=== PATIENT | female | born 1940 | race Caucasian/White ===

== ENCOUNTER 2017-04-09 11:48 | Inpatient (IN) | payer MEDICARE, OTHER ==
[~2017-04-09] VITALS: Ht 160 cm; Wt 120.4 kg
[~2017-04-09 11:48] MED LIST: APIX5TAB3 PO; CARV-50 PO; GLYB5TAB7 PO; LANTUS SQ; OMEP40CA37 PO; SITA100T11 PO; TRAM50TA2 PO
[2017-04-09 12:30] LABS: BASOPHILS % (AUTO) 0.3 % (0-1); EOSINOPHILS # (AUTO) 0.2 X10'3 (0-0.9); HEMATOCRIT 43.4 % (35.0-45.0); HEMOGLOBIN 13.9 g/dl (12.0-16.0); LYMPHOCYTES # (AUTO) 0.7 X10'3 (1.1-4.8); LYMPHOCYTES % (AUTO) 4.8 % (21-51); MEAN CORPUSCULAR HEMOGLOBIN 26.2 PG (27.0-31.0); MEAN CORPUSCULAR VOLUME 81.9 FL (78-98); MEAN PLATELET VOLUME 8.5 FL (7.4-10.4); MONOCYTES # (AUTO) 0.9 X10'3 (0-0.9); MONOCYTES % (AUTO) 5.6 % (2-12); NEUTROPHILS # (AUTO) 13.8 X10'3 (1.8-7.7); NEUTROPHILS % (AUTO) 88.3 % (42-75); PLATELET COUNT 196 X10'3 (140-440); RED CELL DISTRIBUTION WIDTH 16.8 % (11.5-14.5); WHITE BLOOD COUNT 15.7 X10'3 (4.5-11.0)
[2017-04-09 12:41] LABS: INR 1.1 INR; PARTIAL THROMBOPLASTIN TIME 29 SECONDS (22-32); PROTHROMBIN TIME 11.6 SECONDS (9.0-12.0)
[2017-04-09 12:59] LABS: ALANINE AMINOTRANSFERASE 42 U/L (12-78); ALBUMIN 3.3 G/DL (3.4-5.0); ALBUMIN/GLOBULIN RATIO 0.8 (1.1-1.5); ALKALINE PHOSPHATASE 100 IU/L (46-116); ANION GAP 8 (8-16); ASPARTATE AMINO TRANSFERASE 43 U/L (10-37); BILIRUBIN,TOTAL 0.5 MG/DL (0.1-1.0); BLOOD UREA NITROGEN 39 MG/DL (7-18); BUN/CREATININE RATIO 29.1 (6.6-38.0); CALCIUM 8.7 MG/DL (8.5-10.1); CHLORIDE 104 MMOL/L (99-107); CREATININE 1.34 MG/DL (0.40-0.90); GLUCOSE 221 MG/DL (70-104); MAGNESIUM 2.3 MG/DL (1.5-2.4); SODIUM 139 MMOL/L (135-145); TOTAL CARBON DIOXIDE 27.4 MMOL/L (24-32); TOTAL PROTEIN 7.5 G/DL (6.4-8.2); eGFR 38 ML/MIN
[2017-04-09 13:00] LABS: POTASSIUM 6.2 MMOL/L (3.5-5.1)
[2017-04-09] MEDS ORDERED: sodium polystyrene sulfonate 15gm/60ml oral suspension PO ONE (13:10)
[2017-04-09] MEDS ORDERED: insulin regular, human 10 units/0.1 ml syringe IV ONE (13:10)
[2017-04-09] MEDS ORDERED: calcium chloride 100 MG/1 ML inj IV ONE (13:10)
[2017-04-09] MEDS ORDERED: dextrose 50%-water 50ml dispensing syringe IV ONE (13:10)
[2017-04-09] MEDS ORDERED: ipratropium/albuterol 3ml nebule NEB ONE (13:15)
[2017-04-09] MEDS ORDERED: azithromycin/NS 500mg/250ml 250 ML IV ONE (13:15)
[2017-04-09] MEDS ORDERED: cefTRIAXone 1g/NS 100ml IVPB 100 ML IV ONE (13:15)
[2017-04-09] MEDS ORDERED: furosemide 40mg/4ml inj IV ONE (13:25)
[2017-04-09] MEDS ORDERED: diltiazem 5mg/ml 5ml inj. IV ONE (13:25)
[2017-04-09 13:26] LABS: CLARITY,URINE Turbid (Clear); COLOR,URINE Dark Yellow (Yellow); GLUCOSE, URINE Negative (Neg); KETONES,URINE Trace mg/dl (Neg); LEUKOCYTE ESTERASE ,URINE Large (Neg); NITRITES, URINE Negative (Neg); OCCULT BLOOD,URINE Large (Neg); PROTEIN,URINE 100 mg/dl (Neg)
[2017-04-09 13:27] LABS: UA COLLECTION TYPE FOLEY CATH
[2017-04-09 13:33] LABS: WBC,URINE TNTC /HPF (0-4)
[2017-04-09 13:34] LABS: BACTERIA,URINE 2+ /HPF (Neg); MUCUS STRANDS NONE SEEN /LPF (Neg); SQUAMOUS EPITHELIAL CELL,UR FEW /LPF (FEW)
[2017-04-09] MEDS ORDERED: NORepinephrine 1 mg/ml inj IV ONE (15:00)
[2017-04-09] MEDS ORDERED: etomidate 2mg/ml inj. ONE (15:00)
[2017-04-09] MEDS ORDERED: rocuronium 10mg/ml inj IV ONE (15:00)
[2017-04-09] MEDS ORDERED: epiNEPHrine 0.1mg/ml 10ml syringe ONE (15:00)
[2017-04-09] MEDS ORDERED: normal saline 1000ml 1,000 ML IV SCH (16:13)
[2017-04-09] MEDS ORDERED: dextrose ORAL solution 15 GM/59 ML bottle PO PRN (16:15)
[2017-04-09] MEDS ORDERED: magnesium 4gm in 100ml NS 100 ML IV PRN (16:15)
[2017-04-09] MEDS ORDERED: glucagon, human recombinant 1mg kit SUBCUT PRN (16:15)
[2017-04-09] MEDS ORDERED: magnesium 2GM in 50ml NS 50 ML IV PRN (16:15)
[2017-04-09] MEDS ORDERED: magnesium Cl slow-release 64mg tablet PO PRN (16:15)
[2017-04-09] MEDS ORDERED: MESSAGE TO PHARMACY PO ONE (16:15)
[2017-04-09] MEDS ORDERED: morphine 2 MG/ML inj. syringe IV PRN ×2 (16:15)
[2017-04-09] MEDS ORDERED: potassium Cl 20 mEq SR tablet PO PRN ×2 (16:15)
[2017-04-09] MEDS: K and/or MAG REPLACEMENT MC SCH (16:15)
[2017-04-09] MEDS ORDERED: mag hydrox/Alum hydrox/simeth 30ml oral suspension PO PRN (16:15)
[2017-04-09] MEDS ORDERED: diltiazem-D5W 125mg/125ml 125 ML IV SCH (16:15)
[2017-04-09] MEDS ORDERED: potassium Cl 40MEQ/NS 500ml 500 ML IV PRN ×2 (16:15)
[2017-04-09] MEDS ORDERED: acetaminophen 325mg tablet PO PRN (16:15)
[2017-04-09] MEDS ORDERED: dextrose 50%-water 50ml dispensing syringe IV PRN ×2 (16:15)
[2017-04-09] MEDS ORDERED: ATEN-169 PO (16:17)
[2017-04-09] MEDS ORDERED: ACAR50TA3 (16:18)
[2017-04-09] MEDS ORDERED: CARI350T PO (16:19)
[2017-04-09] MEDS ORDERED: ipratropium/albuterol 3ml nebule NEB PRN (16:55)
[2017-04-09] MEDS ORDERED: FLEC100T PO (16:58)
[2017-04-09] MEDS ORDERED: TRAM50TA2 PO (16:58)
[2017-04-09] MEDS ORDERED: SITA100T15 PO (16:58)
[2017-04-09] MEDS: vancomycin/NS 1 GM ADD-VANTAGE 250 ML IV SCH ×2 (17:13→18:58)
[2017-04-09 19:40] VITALS: BP 133/50
[2017-04-09] MEDS ORDERED: furosemide 10 MG/1 ML 10ml inj IV SCH ×2 (20:00)
[2017-04-09] MEDS: carVEDilol 12.5mg tablet PO SCH (20:20)
[2017-04-09] MEDS: apixaban 5mg tablet PO SCH (20:21)
[2017-04-09] MEDS: insulin glargine (Lantus) pen - multi-dose SQ SCH (20:53)
[2017-04-09 21:01] LABS: HEMOGLOBIN A1C 7.9 % (4.5-6.2)
[2017-04-09 21:11] LABS: ABG HCO3 24.6 mmol/L (22.0-26.0); ABG OXYGEN SATURATION 96.2 % (95-98); ABG PCO2 (T) 74.1 mmHg (32.0-45.0); ABG PH (T) 7.139 (7.350-7.450); ABG PO2 (T) 97.1 mmHg (83-108); FCOHb 0.8 % (0.5-1.5); FLOW 5 L/min; FMetHb 0.3 % (0.3-1.12); FO2Hb 95.1 % (94-100); TOTAL HEMOGLOBIN 13.9 G/dl (12.0-16.0)
[2017-04-09 22:51] LABS: ABG BASE EXCESS -3.8 mmol/L (-2.0-3.0); ABG HCO3 24.4 mmol/L (22.0-26.0); ABG OXYGEN SATURATION 93.9 % (95-98); ABG PCO2 (T) 58.7 mmHg (32.0-45.0); ABG PH (T) 7.237 (7.350-7.450); ABG PO2 (T) 73.9 mmHg (83-108); FCOHb 0.7 % (0.5-1.5); FMetHb 0.2 % (0.3-1.12); FO2Hb 93.1 % (94-100); MINUTE VOLUME 20 L/min; RESPIRATORY RATE (OBSERVED) 26 b/min
[2017-04-10] VITALS (7 sets, daily range): BP systolic 96–131; BP diastolic 39–65
[2017-04-10 00:51] LABS: ALANINE AMINOTRANSFERASE 45 U/L (12-78); ALBUMIN 2.7 G/DL (3.4-5.0); ALBUMIN/GLOBULIN RATIO 0.7 (1.1-1.5); ALKALINE PHOSPHATASE 83 IU/L (46-116); ANION GAP 6 (8-16); ASPARTATE AMINO TRANSFERASE 37 U/L (10-37); BILIRUBIN,TOTAL 0.5 MG/DL (0.1-1.0); BLOOD UREA NITROGEN 41 MG/DL (7-18); BUN/CREATININE RATIO 29.5 (6.6-38.0); CALCIUM 8.6 MG/DL (8.5-10.1); CHLORIDE 107 MMOL/L (99-107); CREATININE 1.39 MG/DL (0.40-0.90); GLUCOSE 191 MG/DL (70-104); MAGNESIUM 2.1 MG/DL (1.5-2.4); PHOSPHORUS 5.9 MG/DL (2.3-4.5); POTASSIUM 5.5 MMOL/L (3.5-5.1); SODIUM 144 MMOL/L (135-145); TOTAL CARBON DIOXIDE 30.7 MMOL/L (24-32); TOTAL PROTEIN 6.4 G/DL (6.4-8.2); eGFR 37 ML/MIN
[2017-04-10 03:04] LABS: BASOPHILS % (AUTO) 0.1 % (0-1); EOSINOPHILS % (AUTO) 0 % (0-6); HEMATOCRIT 40.7 % (35.0-45.0); HEMOGLOBIN 13.1 g/dl (12.0-16.0); LYMPHOCYTES # (AUTO) 0.8 X10'3 (1.1-4.8); LYMPHOCYTES % (AUTO) 4.3 % (21-51); MEAN CORPUSCULAR HEMOGLOBIN 26.3 PG (27.0-31.0); MEAN CORPUSCULAR HGB CONC 32.1 % (33.0-36.5); MEAN CORPUSCULAR VOLUME 82.1 FL (78-98); MEAN PLATELET VOLUME 8.7 FL (7.4-10.4); MONOCYTES # (AUTO) 1.2 X10'3 (0-0.9); MONOCYTES % (AUTO) 6.1 % (2-12); NEUTROPHILS # (AUTO) 17.8 X10'3 (1.8-7.7); NEUTROPHILS % (AUTO) 89.5 % (42-75); PLATELET COUNT 172 X10'3 (140-440); RED BLOOD COUNT 4.96 X10'6 (4.20-5.60); RED CELL DISTRIBUTION WIDTH 16.5 % (11.5-14.5); WHITE BLOOD COUNT 19.9 X10'3 (4.5-11.0)
[2017-04-10] MEDS ORDERED: levoFLOXACIN-Levaquin 750MG/D5 150 ML IV SCH (08:00)
[2017-04-10] MEDS ORDERED: furosemide 10 MG/1 ML 10ml inj IV SCH (08:00)
[2017-04-10] MEDS: K and/or MAG REPLACEMENT MC SCH (08:00)
[2017-04-10] MEDS: carVEDilol 12.5mg tablet PO SCH ×2 (08:48→20:05)
[2017-04-10] MEDS ORDERED: sodium polystyrene sulfonate 15gm/60ml oral suspension PO ONE (10:00)
[2017-04-10] MEDS ORDERED: furosemide 40mg/4ml inj IV ONE (10:10)
[2017-04-10] MEDS: apixaban 5mg tablet PO SCH ×2 (11:35→20:04)
[2017-04-10] MEDS ORDERED: LIDOcaine 2% (20 mg/ml) 5ml cardiac syringe ONE ×2 (15:24)
[2017-04-10] MEDS: ipratropium/albuterol 3ml nebule NEB SCH ×3 (15:30→23:42)
[2017-04-10] MEDS ORDERED: LIDOcaine 1% (10mg/ml) 2ml vial ONE (15:37)
[2017-04-10] MEDS: furosemide 40mg/4ml inj IV SCH (20:04)
[2017-04-10] MEDS: insulin glargine (Lantus) pen - multi-dose SQ SCH (21:00)
[2017-04-11 03:00] VITALS: BP 124/55
[2017-04-11] MEDS: ipratropium/albuterol 3ml nebule NEB SCH ×10 (03:12→23:18)
[2017-04-11 03:21] LABS: BASOPHILS % (AUTO) 0.2 % (0-1); EOSINOPHILS # (AUTO) 0.1 X10'3 (0-0.9); EOSINOPHILS % (AUTO) 0.7 % (0-6); HEMATOCRIT 35.4 % (35.0-45.0); HEMOGLOBIN 11.3 g/dl (12.0-16.0); LYMPHOCYTES # (AUTO) 0.8 X10'3 (1.1-4.8); LYMPHOCYTES % (AUTO) 6.5 % (21-51); MEAN CORPUSCULAR HEMOGLOBIN 26.3 PG (27.0-31.0); MEAN CORPUSCULAR VOLUME 82.1 FL (78-98); MONOCYTES % (AUTO) 8.7 % (2-12); NEUTROPHILS # (AUTO) 9.8 X10'3 (1.8-7.7); NEUTROPHILS % (AUTO) 83.9 % (42-75); PLATELET COUNT 158 X10'3 (140-440); RED BLOOD COUNT 4.32 X10'6 (4.20-5.60); RED CELL DISTRIBUTION WIDTH 16.6 % (11.5-14.5); WHITE BLOOD COUNT 11.7 X10'3 (4.5-11.0)
[2017-04-11 03:40] LABS: ALBUMIN 2.4 G/DL (3.4-5.0); ANION GAP 5 (8-16); BILIRUBIN,TOTAL 0.4 MG/DL (0.1-1.0); BLOOD UREA NITROGEN 42 MG/DL (7-18); BUN/CREATININE RATIO 35.3 (6.6-38.0); CALCIUM 8.1 MG/DL (8.5-10.1); CHLORIDE 105 MMOL/L (99-107); CREATININE 1.19 MG/DL (0.40-0.90); GLUCOSE 78 MG/DL (70-104); POTASSIUM 4.4 MMOL/L (3.5-5.1); SODIUM 142 MMOL/L (135-145); TOTAL CARBON DIOXIDE 32.5 MMOL/L (24-32); TOTAL PROTEIN 5.9 G/DL (6.4-8.2); eGFR 44 ML/MIN
[2017-04-11 03:41] LABS: ALANINE AMINOTRANSFERASE 36 U/L (12-78); ALBUMIN/GLOBULIN RATIO 0.7 (1.1-1.5); ALKALINE PHOSPHATASE 70 IU/L (46-116); ASPARTATE AMINO TRANSFERASE 23 U/L (10-37)
[2017-04-11 06:30] VITALS: BP 126/62
[2017-04-11] MEDS: carVEDilol 12.5mg tablet PO SCH ×2 (07:39→20:41)
[2017-04-11] MEDS: apixaban 5mg tablet PO SCH ×2 (07:39→20:40)
[2017-04-11] MEDS: furosemide 40mg/4ml inj IV SCH ×2 (07:40→20:40)
[2017-04-11] MEDS: K and/or MAG REPLACEMENT MC SCH (08:00)
[2017-04-11] MEDS ORDERED: methylPREDNISolone sod succ 125mg/2ml vial IV ONE (09:30)
[2017-04-11 11:00] VITALS: BP 111/86
[2017-04-11] MEDS: flecainide 50mg tablet PO SCH ×2 (12:05→20:40)
[2017-04-11] MEDS: methylPREDNISolone sod succ 125mg/2ml vial IV SCH ×2 (14:00→20:40)
[2017-04-11 15:00] VITALS: BP 112/64
[2017-04-11 19:00] VITALS: BP 113/58
[2017-04-11] MEDS: insulin glargine (Lantus) pen - multi-dose SQ SCH (21:00)
[2017-04-11 23:00] VITALS: BP 101/44
[2017-04-12] MEDS: methylPREDNISolone sod succ 125mg/2ml vial IV SCH ×4 (02:20→20:51)
[2017-04-12 03:00] VITALS: BP 99/56
[2017-04-12] MEDS: ipratropium/albuterol 3ml nebule NEB SCH ×6 (03:00→20:14)
[2017-04-12 05:05] LABS: BASOPHILS % (AUTO) 0 % (0-1); EOSINOPHILS # (AUTO) 0.1 X10'3 (0-0.9); EOSINOPHILS % (AUTO) 0.9 % (0-6); HEMATOCRIT 37.2 % (35.0-45.0); HEMOGLOBIN 11.9 g/dl (12.0-16.0); LYMPHOCYTES # (AUTO) 0.3 X10'3 (1.1-4.8); LYMPHOCYTES % (AUTO) 3.5 % (21-51); MEAN CORPUSCULAR HEMOGLOBIN 26.1 PG (27.0-31.0); MEAN CORPUSCULAR HGB CONC 31.9 % (33.0-36.5); MEAN CORPUSCULAR VOLUME 81.8 FL (78-98); MEAN PLATELET VOLUME 8.5 FL (7.4-10.4); MONOCYTES % (AUTO) 0.4 % (2-12); NEUTROPHILS # (AUTO) 8.2 X10'3 (1.8-7.7); NEUTROPHILS % (AUTO) 95.2 % (42-75); PLATELET COUNT 151 X10'3 (140-440); RED BLOOD COUNT 4.54 X10'6 (4.20-5.60); RED CELL DISTRIBUTION WIDTH 16.2 % (11.5-14.5); WHITE BLOOD COUNT 8.6 X10'3 (4.5-11.0)
[2017-04-12 05:38] LABS: ALANINE AMINOTRANSFERASE 32 U/L (12-78); ALBUMIN 2.5 G/DL (3.4-5.0); ALBUMIN/GLOBULIN RATIO 0.7 (1.1-1.5); ALKALINE PHOSPHATASE 71 IU/L (46-116); ANION GAP 8 (8-16); ASPARTATE AMINO TRANSFERASE 16 U/L (10-37); BILIRUBIN,TOTAL 0.4 MG/DL (0.1-1.0); BLOOD UREA NITROGEN 49 MG/DL (7-18); BUN/CREATININE RATIO 35.5 (6.6-38.0); CHLORIDE 103 MMOL/L (99-107); CREATININE 1.38 MG/DL (0.40-0.90); GLUCOSE 217 MG/DL (70-104); MAGNESIUM 2.1 MG/DL (1.5-2.4); PHOSPHORUS 5.8 MG/DL (2.3-4.5); POTASSIUM 5.1 MMOL/L (3.5-5.1); SODIUM 141 MMOL/L (135-145); eGFR 37 ML/MIN
[2017-04-12 06:00] VITALS: BP 107/57
[2017-04-12] MEDS ORDERED: levoFLOXACIN-Levaquin 750MG/D5 150 ML IV SCH (08:00)
[2017-04-12] MEDS: K and/or MAG REPLACEMENT MC SCH (08:00)
[2017-04-12] MEDS: furosemide 40mg/4ml inj IV SCH ×2 (08:29→20:51)
[2017-04-12] MEDS: carVEDilol 12.5mg tablet PO SCH ×2 (08:44→20:52)
[2017-04-12] MEDS: flecainide 50mg tablet PO SCH ×2 (08:44→20:52)
[2017-04-12] MEDS: apixaban 5mg tablet PO SCH ×2 (08:45→20:52)
[2017-04-12 11:00] VITALS: BP 102/62
[2017-04-12] MEDS: insulin Lispro (HumaLOG) vial - multi-dose SQ SCH ×2 (14:02→18:49)
[2017-04-12 15:00] VITALS: BP 99/49
[2017-04-12] MEDS ORDERED: VANCOMYCIN LEVEL IV ONE (16:30)
[2017-04-12] MEDS: magnesium hydroxide 30ml (MOM) UD suspension PO PRN (17:12)
[2017-04-12] MEDS: lactobacillus rhamnosus 10,000 MMU CELLS/CAPSULE PO SCH (17:12)
[2017-04-12 19:00] VITALS: BP 101/62
[2017-04-12] MEDS: nystatin 15 GM powder TP SCH (20:51)
[2017-04-12] MEDS: insulin glargine (Lantus) pen - multi-dose SQ SCH (21:32)
[2017-04-12 23:00] VITALS: BP 89/50
[2017-04-13] MEDS: ipratropium/albuterol 3ml nebule NEB SCH ×7 (00:03→23:41)
[2017-04-13] MEDS: methylPREDNISolone sod succ 125mg/2ml vial IV SCH ×2 (02:36→08:41)
[2017-04-13 03:00] VITALS: BP 103/59
[2017-04-13 05:30] VITALS: BP 102/44
[2017-04-13 05:33] LABS: BASOPHILS % (AUTO) 0 % (0-1); EOSINOPHILS # (AUTO) 0.1 X10'3 (0-0.9); EOSINOPHILS % (AUTO) 1.3 % (0-6); HEMATOCRIT 35.7 % (35.0-45.0); HEMOGLOBIN 11.5 g/dl (12.0-16.0); LYMPHOCYTES # (AUTO) 0.3 X10'3 (1.1-4.8); MEAN CORPUSCULAR HEMOGLOBIN 26.1 PG (27.0-31.0); MEAN CORPUSCULAR HGB CONC 32.3 % (33.0-36.5); MEAN CORPUSCULAR VOLUME 80.8 FL (78-98); MEAN PLATELET VOLUME 8.7 FL (7.4-10.4); MONOCYTES # (AUTO) 0.2 X10'3 (0-0.9); MONOCYTES % (AUTO) 1.9 % (2-12); NEUTROPHILS # (AUTO) 8.5 X10'3 (1.8-7.7); NEUTROPHILS % (AUTO) 93.8 % (42-75); PLATELET COUNT 146 X10'3 (140-440); RED BLOOD COUNT 4.42 X10'6 (4.20-5.60); RED CELL DISTRIBUTION WIDTH 15.9 % (11.5-14.5); WHITE BLOOD COUNT 9.1 X10'3 (4.5-11.0)
[2017-04-13 07:04] LABS: ALANINE AMINOTRANSFERASE 28 U/L (12-78); ALBUMIN 2.4 G/DL (3.4-5.0); ALBUMIN/GLOBULIN RATIO 0.7 (1.1-1.5); ALKALINE PHOSPHATASE 63 IU/L (46-116); ANION GAP 7 (8-16); ASPARTATE AMINO TRANSFERASE 12 U/L (10-37); BILIRUBIN,TOTAL 0.4 MG/DL (0.1-1.0); BLOOD UREA NITROGEN 61 MG/DL (7-18); BUN/CREATININE RATIO 39.9 (6.6-38.0); CALCIUM 7.9 MG/DL (8.5-10.1); CHLORIDE 102 MMOL/L (99-107); CREATININE 1.53 MG/DL (0.40-0.90); GLUCOSE 245 MG/DL (70-104); MAGNESIUM 2.2 MG/DL (1.5-2.4); PHOSPHORUS 4.2 MG/DL (2.3-4.5); POTASSIUM 5.2 MMOL/L (3.5-5.1); SODIUM 138 MMOL/L (135-145); TOTAL CARBON DIOXIDE 28.8 MMOL/L (24-32); TOTAL PROTEIN 5.7 G/DL (6.4-8.2); eGFR 33 ML/MIN
[2017-04-13] MEDS: K and/or MAG REPLACEMENT MC SCH (08:00)
[2017-04-13] MEDS: flecainide 50mg tablet PO SCH ×2 (08:38→20:00)
[2017-04-13] MEDS: lactobacillus rhamnosus 10,000 MMU CELLS/CAPSULE PO SCH ×2 (08:39→16:37)
[2017-04-13] MEDS: apixaban 5mg tablet PO SCH ×2 (08:40→20:00)
[2017-04-13] MEDS: magnesium hydroxide 30ml (MOM) UD suspension PO PRN (08:40)
[2017-04-13] MEDS: carVEDilol 12.5mg tablet PO SCH ×2 (08:40→20:00)
[2017-04-13] MEDS: nystatin 15 GM powder TP SCH ×3 (08:40→21:19)
[2017-04-13] MEDS: furosemide 40mg/4ml inj IV SCH ×3 (08:41→21:19)
[2017-04-13] MEDS: insulin Lispro (HumaLOG) vial - multi-dose SQ SCH ×3 (08:44→19:07)
[2017-04-13 11:00] VITALS: BP 127/71
[2017-04-13 15:00] VITALS: BP 113/64
[2017-04-13] MEDS ORDERED: VANCOMYCIN LEVEL IV ONE (16:30)
[2017-04-13 19:00] VITALS: BP 103/63
[2017-04-13] MEDS: cefTRIAXone 1g/NS 100ml IVPB 100 ML IV SCH (19:28)
[2017-04-13] MEDS: ondansetron/PF 4mg/2ml inj IV PRN (19:39)
[2017-04-13] MEDS: insulin glargine (Lantus) pen - multi-dose SQ SCH (21:31)
[2017-04-13 23:00] VITALS: BP 104/53
[2017-04-14] VITALS (7 sets, daily range): BP systolic 99–120; BP diastolic 54–72
[2017-04-14] MEDS: ipratropium/albuterol 3ml nebule NEB SCH ×6 (03:38→23:26)
[2017-04-14 05:29] LABS: BASOPHILS # (AUTO) 0.1 X10'3 (0-0.2); BASOPHILS % (AUTO) 0.5 % (0-1); EOSINOPHILS # (AUTO) 0.1 X10'3 (0-0.9); EOSINOPHILS % (AUTO) 0.6 % (0-6); HEMATOCRIT 36.9 % (35.0-45.0); HEMOGLOBIN 11.9 g/dl (12.0-16.0); LYMPHOCYTES # (AUTO) 0.2 X10'3 (1.1-4.8); LYMPHOCYTES % (AUTO) 1.8 % (21-51); MEAN CORPUSCULAR HEMOGLOBIN 26.2 PG (27.0-31.0); MEAN CORPUSCULAR HGB CONC 32.4 % (33.0-36.5); MEAN CORPUSCULAR VOLUME 80.8 FL (78-98); MEAN PLATELET VOLUME 8.9 FL (7.4-10.4); MONOCYTES # (AUTO) 0.4 X10'3 (0-0.9); MONOCYTES % (AUTO) 2.8 % (2-12); NEUTROPHILS # (AUTO) 11.9 X10'3 (1.8-7.7); NEUTROPHILS % (AUTO) 94.3 % (42-75); PLATELET COUNT 138 X10'3 (140-440); RED BLOOD COUNT 4.56 X10'6 (4.20-5.60); RED CELL DISTRIBUTION WIDTH 16.1 % (11.5-14.5); WHITE BLOOD COUNT 12.6 X10'3 (4.5-11.0)
[2017-04-14 05:45] LABS: ALANINE AMINOTRANSFERASE 26 U/L (12-78); ALBUMIN 2.5 G/DL (3.4-5.0); ALBUMIN/GLOBULIN RATIO 0.8 (1.1-1.5); ALKALINE PHOSPHATASE 59 IU/L (46-116); ANION GAP 3 (8-16); ASPARTATE AMINO TRANSFERASE 9 U/L (10-37); BILIRUBIN,TOTAL 0.3 MG/DL (0.1-1.0); BLOOD UREA NITROGEN 69 MG/DL (7-18); BUN/CREATININE RATIO 44.8 (6.6-38.0); CHLORIDE 104 MMOL/L (99-107); CREATININE 1.54 MG/DL (0.40-0.90); GLUCOSE 157 MG/DL (70-104); MAGNESIUM 2.8 MG/DL (1.5-2.4); PHOSPHORUS 4.1 MG/DL (2.3-4.5); POTASSIUM 5.2 MMOL/L (3.5-5.1); SODIUM 140 MMOL/L (135-145); TOTAL CARBON DIOXIDE 32.6 MMOL/L (24-32); TOTAL PROTEIN 5.8 G/DL (6.4-8.2); eGFR 33 ML/MIN
[2017-04-14] MEDS: K and/or MAG REPLACEMENT MC SCH (08:00)
[2017-04-14] MEDS: lactobacillus rhamnosus 10,000 MMU CELLS/CAPSULE PO SCH ×2 (08:44→16:56)
[2017-04-14] MEDS: levoFLOXACIN 750MG TABLET PO SCH (08:44)
[2017-04-14] MEDS: carVEDilol 12.5mg tablet PO SCH ×2 (08:45→19:43)
[2017-04-14] MEDS: flecainide 50mg tablet PO SCH ×2 (08:45→19:43)
[2017-04-14] MEDS: furosemide 40mg/4ml inj IV SCH ×3 (08:45→19:22)
[2017-04-14] MEDS: apixaban 5mg tablet PO SCH ×2 (08:45→19:43)
[2017-04-14] MEDS: cefTRIAXone 1g/NS 100ml IVPB 100 ML IV SCH (08:46)
[2017-04-14] MEDS: insulin Lispro (HumaLOG) vial - multi-dose SQ SCH ×2 (08:55→19:29)
[2017-04-14] MEDS: nystatin 15 GM powder TP SCH ×3 (08:59→21:00)
[2017-04-14] MEDS: insulin glargine (Lantus) pen - multi-dose SQ SCH (22:52)
[2017-04-15] VITALS (10 sets, daily range): BP systolic 87–123; BP diastolic 39–76
[2017-04-15] MEDS: acetaminophen 325mg tablet PO PRN (01:19)
[2017-04-15] MEDS: ipratropium/albuterol 3ml nebule NEB SCH ×6 (03:41→23:26)
[2017-04-15] MEDS: dextrose ORAL solution 15 GM/59 ML bottle PO PRN (07:46)
[2017-04-15] MEDS: flecainide 50mg tablet PO SCH ×2 (08:21→20:07)
[2017-04-15] MEDS: lactobacillus rhamnosus 10,000 MMU CELLS/CAPSULE PO SCH ×2 (08:21→17:11)
[2017-04-15] MEDS: cefTRIAXone 1g/NS 100ml IVPB 100 ML IV SCH (08:21)
[2017-04-15] MEDS: furosemide 40mg/4ml inj IV SCH ×3 (08:21→20:08)
[2017-04-15] MEDS: nystatin 15 GM powder TP SCH ×3 (08:22→20:32)
[2017-04-15] MEDS: apixaban 5mg tablet PO SCH ×2 (08:22→20:07)
[2017-04-15 09:51] LABS: BASOPHILS # (AUTO) 0.1 X10'3 (0-0.2); BASOPHILS % (AUTO) 0.5 % (0-1); EOSINOPHILS # (AUTO) 0.1 X10'3 (0-0.9); EOSINOPHILS % (AUTO) 1.1 % (0-6); HEMATOCRIT 38.2 % (35.0-45.0); HEMOGLOBIN 12.3 g/dl (12.0-16.0); LYMPHOCYTES # (AUTO) 0.4 X10'3 (1.1-4.8); LYMPHOCYTES % (AUTO) 2.9 % (21-51); MEAN CORPUSCULAR HEMOGLOBIN 26.3 PG (27.0-31.0); MEAN CORPUSCULAR HGB CONC 32.2 % (33.0-36.5); MEAN CORPUSCULAR VOLUME 81.5 FL (78-98); MEAN PLATELET VOLUME 8.5 FL (7.4-10.4); MONOCYTES % (AUTO) 7.3 % (2-12); NEUTROPHILS % (AUTO) 88.2 % (42-75); PLATELET COUNT 127 X10'3 (140-440); RED BLOOD COUNT 4.69 X10'6 (4.20-5.60); RED CELL DISTRIBUTION WIDTH 16.4 % (11.5-14.5); WHITE BLOOD COUNT 13.6 X10'3 (4.5-11.0)
[2017-04-15 10:08] LABS: ALANINE AMINOTRANSFERASE 23 U/L (12-78); ALBUMIN 2.5 G/DL (3.4-5.0); ALBUMIN/GLOBULIN RATIO 0.8 (1.1-1.5); ALKALINE PHOSPHATASE 57 IU/L (46-116); ANION GAP 0 (8-16); ASPARTATE AMINO TRANSFERASE 12 U/L (10-37); BILIRUBIN,TOTAL 0.4 MG/DL (0.1-1.0); BLOOD UREA NITROGEN 68 MG/DL (7-18); BUN/CREATININE RATIO 49.3 (6.6-38.0); CALCIUM 7.9 MG/DL (8.5-10.1); CHLORIDE 104 MMOL/L (99-107); CREATININE 1.38 MG/DL (0.40-0.90); GLUCOSE 149 MG/DL (70-104); POTASSIUM 4.5 MMOL/L (3.5-5.1); SODIUM 140 MMOL/L (135-145); TOTAL PROTEIN 5.7 G/DL (6.4-8.2); eGFR 37 ML/MIN
[2017-04-15] MEDS: K and/or MAG REPLACEMENT MC SCH (10:44)
[2017-04-15] MEDS ORDERED: magnesium citrate 296ml oral solution PO ONE (10:45)
[2017-04-15] MEDS: metolazone 2.5mg tablet PO SCH (13:12)
[2017-04-15] MEDS: insulin Lispro (HumaLOG) vial - multi-dose SQ SCH (14:03)
[2017-04-15] MEDS ORDERED: carVEDilol 12.5mg tablet PO SCH (20:00)
[2017-04-15] MEDS: insulin glargine (Lantus) pen - multi-dose SQ SCH (20:23)
[2017-04-15] MEDS ORDERED: carVEDilol 12.5mg tablet PO ONE (20:30)
[2017-04-15] MEDS: temazepam 15mg capsule PO PRN (22:54)
[2017-04-16 03:00] VITALS: BP 108/54
[2017-04-16] MEDS: ipratropium/albuterol 3ml nebule NEB SCH ×6 (03:37→22:47)
[2017-04-16 06:00] VITALS: BP 106/60
[2017-04-16 07:56] LABS: ABG BASE EXCESS 11.9 mmol/L (-2.0-3.0); ABG HCO3 42.8 mmol/L (22.0-26.0); ABG OXYGEN SATURATION 91.4 % (95-98); ABG PCO2 (T) 92.9 mmHg (32.0-45.0); ABG PH (T) 7.281 (7.350-7.450); ALLEN'S TEST Positive; FCOHb 1.3 % (0.5-1.5); FLOW 1 L/min; FMetHb 0.2 % (0.3-1.12); RESPIRATORY RATE (OBSERVED) 20 b/min; TOTAL HEMOGLOBIN 13.6 G/dl (12.0-16.0)
[2017-04-16] MEDS: ondansetron/PF 4mg/2ml inj IV PRN (07:59)
[2017-04-16] MEDS: K and/or MAG REPLACEMENT MC SCH (08:00)
[2017-04-16] MEDS: flecainide 50mg tablet PO SCH ×2 (08:00→20:06)
[2017-04-16] MEDS: furosemide 40mg/4ml inj IV SCH ×3 (08:00→20:06)
[2017-04-16 08:11] LABS: BASOPHILS % (AUTO) 0.2 % (0-1); EOSINOPHILS # (AUTO) 0.1 X10'3 (0-0.9); EOSINOPHILS % (AUTO) 0.7 % (0-6); HEMATOCRIT 39.1 % (35.0-45.0); HEMOGLOBIN 12.6 g/dl (12.0-16.0); LYMPHOCYTES # (AUTO) 0.4 X10'3 (1.1-4.8); LYMPHOCYTES % (AUTO) 3.3 % (21-51); MEAN CORPUSCULAR HEMOGLOBIN 26.2 PG (27.0-31.0); MEAN CORPUSCULAR HGB CONC 32.2 % (33.0-36.5); MEAN CORPUSCULAR VOLUME 81.3 FL (78-98); MEAN PLATELET VOLUME 8.7 FL (7.4-10.4); MONOCYTES # (AUTO) 0.5 X10'3 (0-0.9); MONOCYTES % (AUTO) 3.7 % (2-12); NEUTROPHILS # (AUTO) 11.8 X10'3 (1.8-7.7); NEUTROPHILS % (AUTO) 92.1 % (42-75); PLATELET COUNT 105 X10'3 (140-440); RED CELL DISTRIBUTION WIDTH 16.4 % (11.5-14.5); WHITE BLOOD COUNT 12.8 X10'3 (4.5-11.0)
[2017-04-16 08:25] LABS: ALANINE AMINOTRANSFERASE 19 U/L (12-78); ALBUMIN 2.5 G/DL (3.4-5.0); ALBUMIN/GLOBULIN RATIO 0.7 (1.1-1.5); ALKALINE PHOSPHATASE 61 IU/L (46-116); ANION GAP 0 (8-16); ASPARTATE AMINO TRANSFERASE 18 U/L (10-37); BILIRUBIN,TOTAL 0.4 MG/DL (0.1-1.0); BLOOD UREA NITROGEN 67 MG/DL (7-18); BUN/CREATININE RATIO 51.1 (6.6-38.0); CALCIUM 8.1 MG/DL (8.5-10.1); CHLORIDE 105 MMOL/L (99-107); CREATININE 1.31 MG/DL (0.40-0.90); POTASSIUM 5.1 MMOL/L (3.5-5.1); SODIUM 144 MMOL/L (135-145); TOTAL CARBON DIOXIDE 39.1 MMOL/L (24-32); eGFR 39 ML/MIN
[2017-04-16 08:26] LABS: GLUCOSE 128 MG/DL (70-104)
[2017-04-16] MEDS: nystatin 15 GM powder TP SCH ×3 (09:15→20:18)
[2017-04-16 10:26] LABS: ABG BASE EXCESS 7.7 mmol/L (-2.0-3.0); ABG HCO3 36.4 mmol/L (22.0-26.0); ABG OXYGEN SATURATION 92.9 % (95-98); ABG PH (T) 7.316 (7.350-7.450); ABG PO2 (T) 68.4 mmHg (83-108); ALLEN'S TEST Positive; FCOHb 1.4 % (0.5-1.5); FMetHb 0.1 % (0.3-1.12); FO2Hb 91.5 % (94-100); MINUTE VOLUME 8 L/min; RESPIRATORY RATE 14 b/min; RESPIRATORY RATE (OBSERVED) 18 b/min; TOTAL HEMOGLOBIN 13.1 G/dl (12.0-16.0)
[2017-04-16 11:00] VITALS: BP 109/65
[2017-04-16] MEDS: cefTRIAXone 1g/NS 100ml IVPB 100 ML IV SCH (14:14)
[2017-04-16] MEDS: metolazone 2.5mg tablet PO SCH (14:15)
[2017-04-16] MEDS: carVEDilol 12.5mg tablet PO SCH ×2 (14:15→20:06)
[2017-04-16] MEDS: lactobacillus rhamnosus 10,000 MMU CELLS/CAPSULE PO SCH ×2 (14:15→20:06)
[2017-04-16] MEDS: levoFLOXACIN 750MG TABLET PO SCH (14:15)
[2017-04-16] MEDS: apixaban 5mg tablet PO SCH ×2 (14:15→20:06)
[2017-04-16 15:00] VITALS: BP 108/57
[2017-04-16 19:00] VITALS: BP 96/53
[2017-04-16] MEDS: insulin Lispro (HumaLOG) vial - multi-dose SQ SCH (19:11)
[2017-04-16] MEDS: insulin glargine (Lantus) pen - multi-dose SQ SCH (21:53)
[2017-04-16 23:00] VITALS: BP 103/57
[2017-04-17] VITALS (9 sets, daily range): BP systolic 97–123; BP diastolic 51–84
[2017-04-17] MEDS: diphenhydrAMINE 50 mg/ml inj IV PRN (01:43)
[2017-04-17] MEDS: ipratropium/albuterol 3ml nebule NEB SCH ×6 (03:43→23:22)
[2017-04-17 04:16] LABS: ABG HCO3 35.3 mmol/L (22.0-26.0); ABG OXYGEN SATURATION 93.7 % (95-98); ABG PCO2 (T) 55.8 mmHg (32.0-45.0); ABG PH (T) 7.418 (7.350-7.450); ABG PO2 (T) 64.2 mmHg (83-108); ALLEN'S TEST Positive; FCOHb 1.5 % (0.5-1.5); FMetHb 0.3 % (0.3-1.12); MINUTE VOLUME 8 L/min; PATIENT TEMPERATURE 36.7; RESPIRATORY RATE 14 b/min; RESPIRATORY RATE (OBSERVED) 21 b/min; TOTAL HEMOGLOBIN 12.2 G/dl (12.0-16.0)
[2017-04-17 05:21] LABS: BASOPHILS % (AUTO) 0.1 % (0-1); EOSINOPHILS # (AUTO) 0.1 X10'3 (0-0.9); EOSINOPHILS % (AUTO) 0.9 % (0-6); HEMATOCRIT 35.1 % (35.0-45.0); HEMOGLOBIN 11.3 g/dl (12.0-16.0); LYMPHOCYTES # (AUTO) 0.4 X10'3 (1.1-4.8); LYMPHOCYTES % (AUTO) 3.9 % (21-51); MEAN CORPUSCULAR HEMOGLOBIN 26.1 PG (27.0-31.0); MEAN CORPUSCULAR HGB CONC 32.3 % (33.0-36.5); MEAN CORPUSCULAR VOLUME 80.8 FL (78-98); MEAN PLATELET VOLUME 9.5 FL (7.4-10.4); MONOCYTES # (AUTO) 0.8 X10'3 (0-0.9); MONOCYTES % (AUTO) 6.8 % (2-12); NEUTROPHILS # (AUTO) 10.2 X10'3 (1.8-7.7); NEUTROPHILS % (AUTO) 88.3 % (42-75); PLATELET COUNT 90 X10'3 (140-440); RED BLOOD COUNT 4.34 X10'6 (4.20-5.60); RED CELL DISTRIBUTION WIDTH 16.3 % (11.5-14.5); WHITE BLOOD COUNT 11.5 X10'3 (4.5-11.0)
[2017-04-17 06:25] LABS: ALBUMIN 2.1 G/DL (3.4-5.0); ANION GAP -1 (8-16); BLOOD UREA NITROGEN 60 MG/DL (7-18); BUN/CREATININE RATIO 46.5 (6.6-38.0); CALCIUM 8.1 MG/DL (8.5-10.1); CHLORIDE 106 MMOL/L (99-107); CREATININE 1.29 MG/DL (0.40-0.90); GLUCOSE 108 MG/DL (70-104); MAGNESIUM 2.5 MG/DL (1.5-2.4); POTASSIUM 4.6 MMOL/L (3.5-5.1); SODIUM 146 MMOL/L (135-145); eGFR 40 ML/MIN
[2017-04-17] MEDS: acetaminophen 325mg tablet PO PRN (06:51)
[2017-04-17 07:06] LABS: TOTAL CARBON DIOXIDE 41.2 MMOL/L (24-32)
[2017-04-17] MEDS: cefTRIAXone 1g/NS 100ml IVPB 100 ML IV SCH (07:55)
[2017-04-17] MEDS: lactobacillus rhamnosus 10,000 MMU CELLS/CAPSULE PO SCH ×2 (07:55→20:00)
[2017-04-17] MEDS: flecainide 50mg tablet PO SCH ×2 (07:55→20:00)
[2017-04-17] MEDS: carVEDilol 12.5mg tablet PO SCH ×2 (07:56→20:00)
[2017-04-17] MEDS: K and/or MAG REPLACEMENT MC SCH (08:00)
[2017-04-17] MEDS: nystatin 15 GM powder TP SCH ×3 (08:00→21:11)
[2017-04-17] MEDS: furosemide 40mg/4ml inj IV SCH ×3 (08:06→21:33)
[2017-04-17] MEDS: metolazone 2.5mg tablet PO SCH (08:07)
[2017-04-17] MEDS: apixaban 5mg tablet PO SCH ×2 (08:07→20:00)
[2017-04-17] MEDS ORDERED: bisacodyl 10mg suppository rectal RC PRN (11:00)
[2017-04-17] MEDS: mineral oil 133ml enema RC PRN (19:17)
[2017-04-17] MEDS: docusate sod 100mg capsule PO SCH (20:00)
[2017-04-17] MEDS: insulin glargine (Lantus) pen - multi-dose SQ SCH (21:40)
[2017-04-18 03:00] VITALS: BP 122/64
[2017-04-18] MEDS: ipratropium/albuterol 3ml nebule NEB SCH ×6 (03:38→23:14)
[2017-04-18 05:24] LABS: BASOPHILS % (AUTO) 0.2 % (0-1); EOSINOPHILS # (AUTO) 0.2 X10'3 (0-0.9); EOSINOPHILS % (AUTO) 1.9 % (0-6); HEMATOCRIT 35.4 % (35.0-45.0); HEMOGLOBIN 11.4 g/dl (12.0-16.0); LYMPHOCYTES # (AUTO) 0.6 X10'3 (1.1-4.8); LYMPHOCYTES % (AUTO) 4.7 % (21-51); MEAN CORPUSCULAR HEMOGLOBIN 25.9 PG (27.0-31.0); MEAN CORPUSCULAR HGB CONC 32.1 % (33.0-36.5); MEAN CORPUSCULAR VOLUME 80.7 FL (78-98); MEAN PLATELET VOLUME 9.3 FL (7.4-10.4); MONOCYTES # (AUTO) 0.8 X10'3 (0-0.9); MONOCYTES % (AUTO) 6.6 % (2-12); NEUTROPHILS # (AUTO) 10.5 X10'3 (1.8-7.7); NEUTROPHILS % (AUTO) 86.6 % (42-75); PLATELET COUNT 94 X10'3 (140-440); RED BLOOD COUNT 4.39 X10'6 (4.20-5.60); RED CELL DISTRIBUTION WIDTH 16.2 % (11.5-14.5); WHITE BLOOD COUNT 12.2 X10'3 (4.5-11.0)
[2017-04-18 06:00] VITALS: BP 103/58
[2017-04-18 06:05] LABS: ALANINE AMINOTRANSFERASE 12 U/L (12-78); ALBUMIN 2.1 G/DL (3.4-5.0); ALBUMIN/GLOBULIN RATIO 0.7 (1.1-1.5); ALKALINE PHOSPHATASE 54 IU/L (46-116); ANION GAP 1 (8-16); ASPARTATE AMINO TRANSFERASE 14 U/L (10-37); BILIRUBIN,TOTAL 0.5 MG/DL (0.1-1.0); BLOOD UREA NITROGEN 54 MG/DL (7-18); BUN/CREATININE RATIO 47.4 (6.6-38.0); CALCIUM 8.1 MG/DL (8.5-10.1); CHLORIDE 102 MMOL/L (99-107); CREATININE 1.14 MG/DL (0.40-0.90); GLUCOSE 90 MG/DL (70-104); POTASSIUM 3.8 MMOL/L (3.5-5.1); SODIUM 147 MMOL/L (135-145); TOTAL PROTEIN 5.1 G/DL (6.4-8.2); eGFR 46 ML/MIN
[2017-04-18 06:17] LABS: TOTAL CARBON DIOXIDE 43.6 MMOL/L (24-32)
[2017-04-18 07:06] LABS: MAGNESIUM 2.3 MG/DL (1.5-2.4)
[2017-04-18] MEDS: nystatin 15 GM powder TP SCH ×3 (07:54→20:47)
[2017-04-18] MEDS: levoFLOXACIN 750MG TABLET PO SCH (07:54)
[2017-04-18] MEDS: apixaban 5mg tablet PO SCH ×2 (07:55→20:47)
[2017-04-18] MEDS: lactobacillus rhamnosus 10,000 MMU CELLS/CAPSULE PO SCH ×2 (07:55→20:46)
[2017-04-18] MEDS: docusate sod 100mg capsule PO SCH ×2 (07:55→20:46)
[2017-04-18] MEDS: flecainide 50mg tablet PO SCH ×2 (07:56→20:47)
[2017-04-18] MEDS: furosemide 40mg/4ml inj IV SCH ×2 (07:56→20:47)
[2017-04-18] MEDS: carVEDilol 12.5mg tablet PO SCH ×2 (07:56→20:48)
[2017-04-18] MEDS: cefTRIAXone 1g/NS 100ml IVPB 100 ML IV SCH (07:56)
[2017-04-18] MEDS: K and/or MAG REPLACEMENT MC SCH (08:00)
[2017-04-18] MEDS: HYDROcodone/acetaminophen 5mg/325mg tablet PO PRN ×2 (09:37→19:32)
[2017-04-18] MEDS: insulin Lispro (HumaLOG) vial - multi-dose SQ SCH (09:40)
[2017-04-18 11:00] VITALS: BP 102/60
[2017-04-18 15:00] VITALS: BP 97/52
[2017-04-18 19:00] VITALS: BP 111/55
[2017-04-18] MEDS: insulin glargine (Lantus) pen - multi-dose SQ SCH (21:06)
[2017-04-18 23:00] VITALS: BP 91/53
[2017-04-19] VITALS (19 sets, daily range): BP systolic 84–130; BP diastolic 39–66
[2017-04-19] MEDS: HYDROcodone/acetaminophen 5mg/325mg tablet PO PRN (03:01)
[2017-04-19] MEDS: ondansetron/PF 4mg/2ml inj IV PRN (03:07)
[2017-04-19] MEDS: ipratropium/albuterol 3ml nebule NEB SCH ×6 (03:28→22:29)
[2017-04-19 05:13] LABS: BASOPHILS % (AUTO) 0 % (0-1); EOSINOPHILS # (AUTO) 0.3 X10'3 (0-0.9); EOSINOPHILS % (AUTO) 2.3 % (0-6); HEMATOCRIT 36.4 % (35.0-45.0); HEMOGLOBIN 11.5 g/dl (12.0-16.0); LYMPHOCYTES # (AUTO) 0.5 X10'3 (1.1-4.8); LYMPHOCYTES % (AUTO) 3.8 % (21-51); MEAN CORPUSCULAR HGB CONC 31.7 % (33.0-36.5); MEAN CORPUSCULAR VOLUME 82.1 FL (78-98); MEAN PLATELET VOLUME 9.5 FL (7.4-10.4); MONOCYTES # (AUTO) 1.1 X10'3 (0-0.9); MONOCYTES % (AUTO) 9.2 % (2-12); NEUTROPHILS # (AUTO) 10.5 X10'3 (1.8-7.7); NEUTROPHILS % (AUTO) 84.7 % (42-75); PLATELET COUNT 97 X10'3 (140-440); RED BLOOD COUNT 4.43 X10'6 (4.20-5.60); RED CELL DISTRIBUTION WIDTH 16.5 % (11.5-14.5); WHITE BLOOD COUNT 12.4 X10'3 (4.5-11.0)
[2017-04-19 05:39] LABS: ALANINE AMINOTRANSFERASE 11 U/L (12-78); ALBUMIN 2.2 G/DL (3.4-5.0); ALBUMIN/GLOBULIN RATIO 0.7 (1.1-1.5); ALKALINE PHOSPHATASE 56 IU/L (46-116); ASPARTATE AMINO TRANSFERASE 19 U/L (10-37); BILIRUBIN,TOTAL 0.4 MG/DL (0.1-1.0); BLOOD UREA NITROGEN 53 MG/DL (7-18); BUN/CREATININE RATIO 43.8 (6.6-38.0); CHLORIDE 99 MMOL/L (99-107); CREATININE 1.21 MG/DL (0.40-0.90); GLUCOSE 87 MG/DL (70-104); POTASSIUM 3.9 MMOL/L (3.5-5.1); SODIUM 146 MMOL/L (135-145); TOTAL PROTEIN 5.3 G/DL (6.4-8.2); eGFR 43 ML/MIN
[2017-04-19 05:55] LABS: ANION GAP 8 (8-16); TOTAL CARBON DIOXIDE 39.4 MMOL/L (24-32)
[2017-04-19] MEDS ORDERED: FENTANYL-0.9 % NACL/PF 100 ML IV PRN (07:20)
[2017-04-19] MEDS: carVEDilol 12.5mg tablet PO SCH ×2 (08:00→20:00)
[2017-04-19] MEDS: apixaban 5mg tablet PO SCH ×2 (08:00→20:49)
[2017-04-19] MEDS: K and/or MAG REPLACEMENT MC SCH (08:00)
[2017-04-19] MEDS: midazolam 100mg in NS 100ml 100 ML IV PRN ×2 (08:00→14:18)
[2017-04-19] MEDS ORDERED: levoFLOXACIN-Levaquin 500mg/D5 100 ML IV SCH (08:00)
[2017-04-19] MEDS: docusate sod 100mg capsule PO SCH (08:00)
[2017-04-19] MEDS ORDERED: linezolid 600mg/300ml PREMIX 300 ML IV ONE (08:00)
[2017-04-19] MEDS ORDERED: HYDROmorphone inj. 0.5 MG/0.5 ML DISP.SYRIN IV PRN (08:00)
[2017-04-19] MEDS ORDERED: midazolam 100mg in NS 100ml 100 ML IV PRN (08:04)
[2017-04-19] MEDS ORDERED: ipratropium/albuterol 3ml nebule NEB PRN (08:05)
[2017-04-19 08:11] LABS: ABG BASE EXCESS 15.7 mmol/L (-2.0-3.0); ABG HCO3 42.9 mmol/L (22.0-26.0); ABG OXYGEN SATURATION 93.8 % (95-98); ABG PCO2 (T) 63.8 mmHg (32.0-45.0); ABG PH (T) 7.445 (7.350-7.450); ABG PO2 (T) 61.7 mmHg (83-108); FCOHb 1.9 % (0.5-1.5); FMetHb 0.3 % (0.3-1.12); FO2Hb 91.7 % (94-100); MINUTE VOLUME 7 L/min; PEEP 5 cm H2O; RESPIRATORY RATE 18 b/min; RESPIRATORY RATE (OBSERVED) 18 b/min; TIDAL VOLUME 400 mL; TOTAL HEMOGLOBIN 13.1 G/dl (12.0-16.0)
[2017-04-19] MEDS: nystatin 15 GM powder TP SCH ×3 (08:54→20:49)
[2017-04-19] MEDS: lactobacillus rhamnosus 10,000 MMU CELLS/CAPSULE PO SCH ×2 (08:54→20:41)
[2017-04-19] MEDS: furosemide 40mg/4ml inj IV SCH ×2 (09:20→20:00)
[2017-04-19 10:40] LABS: ABG BASE EXCESS 16.2 mmol/L (-2.0-3.0); ABG HCO3 41.3 mmol/L (22.0-26.0); ABG OXYGEN SATURATION 96.5 % (95-98); ABG PCO2 (T) 51.6 mmHg (32.0-45.0); ABG PH (T) 7.522 (7.350-7.450); ABG PO2 (T) 79.5 mmHg (83-108); FMetHb 0.1 % (0.3-1.12); FO2Hb 95.4 % (94-100); MINUTE VOLUME 6 L/min; PATIENT TEMPERATURE 37.2; PEEP 8 cm H2O; RESPIRATORY RATE 14 b/min; RESPIRATORY RATE (OBSERVED) 14 b/min; TOTAL HEMOGLOBIN 12.9 G/dl (12.0-16.0)
[2017-04-19] MEDS ORDERED: ipratropium/albuterol 3ml nebule NEB SCH (11:00)
[2017-04-19] MEDS: cefepime 1GM/NS ADD-VANTAGE 100 ML IV SCH ×2 (12:32→20:40)
[2017-04-19] MEDS: dextrose ORAL solution 15 GM/59 ML bottle PO PRN (14:51)
[2017-04-19] MEDS: flecainide 50mg tablet PO SCH ×2 (16:00→20:40)
[2017-04-19] MEDS: linezolid 600mg/300ml PREMIX 300 ML IV SCH (20:41)
[2017-04-19] MEDS: insulin glargine (Lantus) pen - multi-dose SQ SCH (20:42)
[2017-04-19] MEDS: docusate sodium 100mg/10ml UD cup PO SCH (20:57)
[2017-04-19] MEDS ORDERED: docusate sodium 100mg/10ml UD cup PO ONE (21:00)
[2017-04-19] MEDS ORDERED: albumin (human) 25% 100 ML IV solution IV ONE (23:10)
[2017-04-20] VITALS (24 sets, daily range): BP systolic 81–110; BP diastolic 37–58
[2017-04-20] MEDS ORDERED: NORepinephrine 8mg/ 250ml NS 250 ML IV SCH (00:35)
[2017-04-20] MEDS: ipratropium/albuterol 3ml nebule NEB SCH ×6 (02:28→22:34)
[2017-04-20 03:55] LABS: ABG BASE EXCESS 17.9 mmol/L (-2.0-3.0); ABG HCO3 41.5 mmol/L (22.0-26.0); ABG PCO2 (T) 45.2 mmHg (32.0-45.0); ABG PH (T) 7.583 (7.350-7.450); ABG PO2 (T) 190.1 mmHg (83-108); ALLEN'S TEST Positive; FCOHb 0.3 % (0.5-1.5); FMetHb 0.1 % (0.3-1.12); FO2Hb 98.6 % (94-100); MINUTE VOLUME 5 L/min; PATIENT TEMPERATURE 37.5; PEEP 8 cm H2O; RESPIRATORY RATE 12 b/min; RESPIRATORY RATE (OBSERVED) 12 b/min; TIDAL VOLUME 438 mL; TOTAL HEMOGLOBIN 11.2 G/dl (12.0-16.0)
[2017-04-20 04:32] LABS: BASOPHILS % (AUTO) 0.1 % (0-1); EOSINOPHILS # (AUTO) 0.2 X10'3 (0-0.9); EOSINOPHILS % (AUTO) 1.7 % (0-6); HEMOGLOBIN 10.5 g/dl (12.0-16.0); LYMPHOCYTES # (AUTO) 0.5 X10'3 (1.1-4.8); LYMPHOCYTES % (AUTO) 4.6 % (21-51); MEAN CORPUSCULAR HEMOGLOBIN 26.3 PG (27.0-31.0); MEAN CORPUSCULAR HGB CONC 32.8 % (33.0-36.5); MEAN CORPUSCULAR VOLUME 80.1 FL (78-98); MEAN PLATELET VOLUME 8.9 FL (7.4-10.4); MONOCYTES # (AUTO) 1.2 X10'3 (0-0.9); NEUTROPHILS # (AUTO) 8.4 X10'3 (1.8-7.7); NEUTROPHILS % (AUTO) 81.6 % (42-75); PLATELET COUNT 93 X10'3 (140-440); RED CELL DISTRIBUTION WIDTH 16.1 % (11.5-14.5); WHITE BLOOD COUNT 10.3 X10'3 (4.5-11.0)
[2017-04-20] MEDS ORDERED: FENTANYL-0.9 % NACL/PF 100 ML IV PRN (04:40)
[2017-04-20 04:57] LABS: ALANINE AMINOTRANSFERASE 18 U/L (12-78); ALBUMIN 2.7 G/DL (3.4-5.0); ALBUMIN/GLOBULIN RATIO 1.1 (1.1-1.5); ALKALINE PHOSPHATASE 45 IU/L (46-116); ANION GAP 4 (8-16); ASPARTATE AMINO TRANSFERASE 19 U/L (10-37); BLOOD UREA NITROGEN 52 MG/DL (7-18); BUN/CREATININE RATIO 38.8 (6.6-38.0); CALCIUM 7.8 MG/DL (8.5-10.1); CHLORIDE 98 MMOL/L (99-107); CREATININE 1.34 MG/DL (0.40-0.90); GLUCOSE 148 MG/DL (70-104); POTASSIUM 3.1 MMOL/L (3.5-5.1); PREALBUMIN 12.1 MG/DL (19-36); SODIUM 144 MMOL/L (135-145); TOTAL PROTEIN 5.1 G/DL (6.4-8.2); eGFR 38 ML/MIN
[2017-04-20 04:59] LABS: TOTAL CARBON DIOXIDE 41.7 MMOL/L (24-32)
[2017-04-20] MEDS: carVEDilol 12.5mg tablet PO SCH ×2 (06:56→20:26)
[2017-04-20] MEDS: cefepime 1GM/NS ADD-VANTAGE 100 ML IV SCH ×2 (06:59→20:27)
[2017-04-20] MEDS: flecainide 50mg tablet PO SCH ×2 (07:47→20:27)
[2017-04-20] MEDS: lactobacillus rhamnosus 10,000 MMU CELLS/CAPSULE PO SCH ×2 (07:47→20:27)
[2017-04-20] MEDS: apixaban 5mg tablet PO SCH ×2 (07:47→20:46)
[2017-04-20] MEDS: furosemide 40mg/4ml inj IV SCH ×2 (07:47→20:28)
[2017-04-20] MEDS: nystatin 15 GM powder TP SCH ×3 (08:00→21:57)
[2017-04-20] MEDS: K and/or MAG REPLACEMENT MC SCH ×2 (08:00→10:25)
[2017-04-20] MEDS: HYDROcodone/acetaminophen 5mg/325mg tablet PO PRN (09:26)
[2017-04-20] MEDS ORDERED: magnesium 4gm in 100ml NS 100 ML IV PRN (10:25)
[2017-04-20] MEDS ORDERED: magnesium 2GM in 50ml NS 50 ML IV PRN (10:25)
[2017-04-20] MEDS ORDERED: magnesium Cl slow-release 64mg tablet PO PRN (10:25)
[2017-04-20] MEDS ORDERED: potassium Cl 40MEQ/250ML bag 250 ML IV PRN (10:25)
[2017-04-20] MEDS: linezolid 600mg/300ml PREMIX 300 ML IV SCH ×2 (10:51→20:39)
[2017-04-20] MEDS: potassium Cl 40MEQ/250ML bag 250 ML IV PRN (12:38)
[2017-04-20] MEDS: insulin regular, human vial - multi-dose SQ SCH ×2 (13:55→21:49)
[2017-04-20] MEDS: famotidine/PF 10 mg/ml inj IV SCH (20:27)
[2017-04-20] MEDS: docusate sodium 100mg/10ml UD cup PO SCH (20:27)
[2017-04-20] MEDS: mineral oil/petrolatum ophthal oint EACHEYE SCH (20:46)
[2017-04-20] MEDS: insulin glargine (Lantus) pen - multi-dose SQ SCH (21:51)
[2017-04-21] VITALS (22 sets, daily range): BP systolic 89–121; BP diastolic 40–71
[2017-04-21] MEDS: ipratropium/albuterol 3ml nebule NEB SCH ×6 (02:32→23:16)
[2017-04-21] MEDS: mineral oil/petrolatum ophthal oint EACHEYE SCH ×4 (02:52→20:57)
[2017-04-21] MEDS: insulin regular, human vial - multi-dose SQ SCH ×4 (02:55→21:03)
[2017-04-21 03:31] LABS: ABG BASE EXCESS 13.6 mmol/L (-2.0-3.0); ABG HCO3 38.7 mmol/L (22.0-26.0); ABG PCO2 (T) 53.2 mmHg (32.0-45.0); ABG PH (T) 7.482 (7.350-7.450); ALLEN'S TEST Positive; FCOHb 0.8 % (0.5-1.5); FO2Hb 94.2 % (94-100); MINUTE VOLUME 6 L/min; PATIENT TEMPERATURE 37.7; PEEP 5 cm H2O; RESPIRATORY RATE 0 b/min; RESPIRATORY RATE (OBSERVED) 16 b/min; TIDAL VOLUME 433 mL; TOTAL HEMOGLOBIN 10.8 G/dl (12.0-16.0)
[2017-04-21 06:53] LABS: BASOPHILS % (AUTO) 0.1 % (0-1); EOSINOPHILS # (AUTO) 0.2 X10'3 (0-0.9); EOSINOPHILS % (AUTO) 2.6 % (0-6); HEMATOCRIT 31.3 % (35.0-45.0); HEMOGLOBIN 10.1 g/dl (12.0-16.0); LYMPHOCYTES # (AUTO) 0.4 X10'3 (1.1-4.8); MEAN CORPUSCULAR HEMOGLOBIN 26.2 PG (27.0-31.0); MEAN CORPUSCULAR HGB CONC 32.3 % (33.0-36.5); MEAN PLATELET VOLUME 9.4 FL (7.4-10.4); MONOCYTES % (AUTO) 11.5 % (2-12); NEUTROPHILS # (AUTO) 7.2 X10'3 (1.8-7.7); NEUTROPHILS % (AUTO) 80.8 % (42-75); PLATELET COUNT 88 X10'3 (140-440); RED BLOOD COUNT 3.86 X10'6 (4.20-5.60); RED CELL DISTRIBUTION WIDTH 16.7 % (11.5-14.5)
[2017-04-21 07:18] LABS: ALANINE AMINOTRANSFERASE 20 U/L (12-78); ALBUMIN 2.2 G/DL (3.4-5.0); ALBUMIN/GLOBULIN RATIO 0.8 (1.1-1.5); ALKALINE PHOSPHATASE 47 IU/L (46-116); ANION GAP 5 (8-16); ASPARTATE AMINO TRANSFERASE 18 U/L (10-37); BILIRUBIN,TOTAL 0.5 MG/DL (0.1-1.0); BLOOD UREA NITROGEN 67 MG/DL (7-18); BUN/CREATININE RATIO 43.8 (6.6-38.0); CALCIUM 7.6 MG/DL (8.5-10.1); CHLORIDE 100 MMOL/L (99-107); CREATININE 1.53 MG/DL (0.40-0.90); GLUCOSE 184 MG/DL (70-104); POTASSIUM 3.3 MMOL/L (3.5-5.1); SODIUM 144 MMOL/L (135-145); TOTAL CARBON DIOXIDE 39.4 MMOL/L (24-32); eGFR 33 ML/MIN
[2017-04-21] MEDS: K and/or MAG REPLACEMENT MC SCH (08:00)
[2017-04-21] MEDS: carVEDilol 12.5mg tablet PO SCH ×2 (08:00→20:00)
[2017-04-21] MEDS: linezolid 600mg/300ml PREMIX 300 ML IV SCH (08:00)
[2017-04-21] MEDS: nystatin 15 GM powder TP SCH ×3 (08:00→21:16)
[2017-04-21] MEDS: flecainide 50mg tablet PO SCH ×2 (08:08→20:41)
[2017-04-21] MEDS: lactobacillus rhamnosus 10,000 MMU CELLS/CAPSULE PO SCH ×2 (08:08→20:40)
[2017-04-21] MEDS: HYDROcodone/acetaminophen 5mg/325mg tablet PO PRN (08:08)
[2017-04-21] MEDS: furosemide 40mg/4ml inj IV SCH ×2 (08:08→20:00)
[2017-04-21] MEDS: cefepime 1GM/NS ADD-VANTAGE 100 ML IV SCH ×2 (08:08→20:40)
[2017-04-21] MEDS: docusate sodium 100mg/10ml UD cup PO SCH ×2 (08:08→20:41)
[2017-04-21] MEDS: famotidine/PF 10 mg/ml inj IV SCH ×2 (08:08→20:40)
[2017-04-21] MEDS: apixaban 5mg tablet PO SCH ×2 (09:59→20:40)
[2017-04-21 20:20] LABS: MAGNESIUM 2.1 MG/DL (1.5-2.4); POTASSIUM 3.4 MMOL/L (3.5-5.1)
[2017-04-21] MEDS: insulin glargine (Lantus) pen - multi-dose SQ SCH (21:02)
[2017-04-21] MEDS: potassium Cl 40MEQ/250ML bag 250 ML IV PRN (22:35)
[2017-04-22] VITALS (24 sets, daily range): BP systolic 86–114; BP diastolic 43–63
[2017-04-22] MEDS: mineral oil/petrolatum ophthal oint EACHEYE SCH ×4 (02:45→20:38)
[2017-04-22] MEDS: insulin regular, human vial - multi-dose SQ SCH ×4 (02:46→20:50)
[2017-04-22] MEDS: ipratropium/albuterol 3ml nebule NEB SCH ×4 (03:08→21:18)
[2017-04-22 03:22] LABS: BASOPHILS % (AUTO) 0.1 % (0-1); EOSINOPHILS # (AUTO) 0.4 X10'3 (0-0.9); EOSINOPHILS % (AUTO) 3.5 % (0-6); HEMOGLOBIN 9.7 g/dl (12.0-16.0); LYMPHOCYTES # (AUTO) 0.6 X10'3 (1.1-4.8); LYMPHOCYTES % (AUTO) 5.5 % (21-51); MEAN CORPUSCULAR HEMOGLOBIN 25.8 PG (27.0-31.0); MEAN CORPUSCULAR HGB CONC 32.3 % (33.0-36.5); MEAN CORPUSCULAR VOLUME 79.7 FL (78-98); MEAN PLATELET VOLUME 9.7 FL (7.4-10.4); MONOCYTES # (AUTO) 1.2 X10'3 (0-0.9); MONOCYTES % (AUTO) 10.5 % (2-12); NEUTROPHILS % (AUTO) 80.4 % (42-75); PLATELET COUNT 95 X10'3 (140-440); RED BLOOD COUNT 3.77 X10'6 (4.20-5.60); RED CELL DISTRIBUTION WIDTH 16.7 % (11.5-14.5); WHITE BLOOD COUNT 11.1 X10'3 (4.5-11.0)
[2017-04-22 03:37] LABS: ALANINE AMINOTRANSFERASE 22 U/L (12-78); ALBUMIN 2.1 G/DL (3.4-5.0); ALBUMIN/GLOBULIN RATIO 0.8 (1.1-1.5); ALKALINE PHOSPHATASE 45 IU/L (46-116); ANION GAP 3 (8-16); ASPARTATE AMINO TRANSFERASE 21 U/L (10-37); BILIRUBIN,TOTAL 0.5 MG/DL (0.1-1.0); BLOOD UREA NITROGEN 74 MG/DL (7-18); BUN/CREATININE RATIO 51.7 (6.6-38.0); CALCIUM 7.7 MG/DL (8.5-10.1); CHLORIDE 102 MMOL/L (99-107); CREATININE 1.43 MG/DL (0.40-0.90); GLUCOSE 148 MG/DL (70-104); PREALBUMIN 10.9 MG/DL (19-36); SODIUM 145 MMOL/L (135-145); TOTAL CARBON DIOXIDE 39.8 MMOL/L (24-32); TOTAL PROTEIN 4.9 G/DL (6.4-8.2); eGFR 35 ML/MIN
[2017-04-22] MEDS: HYDROcodone/acetaminophen 5mg/325mg tablet PO PRN ×4 (03:50→20:40)
[2017-04-22 04:06] LABS: ABG BASE EXCESS 8.6 mmol/L (-2.0-3.0); ABG HCO3 31.5 mmol/L (22.0-26.0); ABG OXYGEN SATURATION 95.5 % (95-98); ABG PCO2 (T) 37.8 mmHg (32.0-45.0); ABG PO2 (T) 82.1 mmHg (83-108); ALLEN'S TEST Positive; FCOHb 0.3 % (0.5-1.5); FMetHb 0.1 % (0.3-1.12); FO2Hb 95.1 % (94-100); MINUTE VOLUME 12 L/min; PATIENT TEMPERATURE 37.7; PEEP 5 cm H2O; RESPIRATORY RATE 12 b/min; RESPIRATORY RATE (OBSERVED) 12 b/min; TIDAL VOLUME 500 mL; TOTAL HEMOGLOBIN 10.7 G/dl (12.0-16.0)
[2017-04-22] MEDS: carVEDilol 12.5mg tablet PO SCH ×2 (08:00→20:00)
[2017-04-22] MEDS: furosemide 40mg/4ml inj IV SCH ×2 (08:00→20:00)
[2017-04-22] MEDS: K and/or MAG REPLACEMENT MC SCH (08:00)
[2017-04-22] MEDS: docusate sodium 100mg/10ml UD cup PO SCH ×2 (08:06→20:39)
[2017-04-22] MEDS: apixaban 5mg tablet PO SCH ×2 (08:06→20:39)
[2017-04-22] MEDS: flecainide 50mg tablet PO SCH ×2 (08:07→20:39)
[2017-04-22] MEDS: lactobacillus rhamnosus 10,000 MMU CELLS/CAPSULE PO SCH ×2 (08:07→20:39)
[2017-04-22] MEDS: cefepime 1GM/NS ADD-VANTAGE 100 ML IV SCH ×2 (08:07→21:53)
[2017-04-22] MEDS: famotidine/PF 10 mg/ml inj IV SCH ×2 (08:12→20:39)
[2017-04-22] MEDS: nystatin 15 GM powder TP SCH ×3 (08:17→20:39)
[2017-04-22] MEDS: insulin glargine (Lantus) pen - multi-dose SQ SCH (20:51)
[2017-04-23] VITALS (24 sets, daily range): BP systolic 96–119; BP diastolic 48–75
[2017-04-23] MEDS: HYDROcodone/acetaminophen 5mg/325mg tablet PO PRN (02:05)
[2017-04-23] MEDS: mineral oil/petrolatum ophthal oint EACHEYE SCH ×4 (02:06→20:36)
[2017-04-23] MEDS: insulin regular, human vial - multi-dose SQ SCH ×4 (02:11→20:42)
[2017-04-23] MEDS: ipratropium/albuterol 3ml nebule NEB SCH ×4 (03:09→19:52)
[2017-04-23 04:29] LABS: BASOPHILS % (AUTO) 0.2 % (0-1); EOSINOPHILS # (AUTO) 0.4 X10'3 (0-0.9); EOSINOPHILS % (AUTO) 4.4 % (0-6); HEMOGLOBIN 9.8 g/dl (12.0-16.0); LYMPHOCYTES # (AUTO) 0.6 X10'3 (1.1-4.8); LYMPHOCYTES % (AUTO) 5.8 % (21-51); MEAN CORPUSCULAR HGB CONC 32.5 % (33.0-36.5); MEAN CORPUSCULAR VOLUME 79.9 FL (78-98); MEAN PLATELET VOLUME 10.1 FL (7.4-10.4); MONOCYTES # (AUTO) 0.8 X10'3 (0-0.9); MONOCYTES % (AUTO) 8.3 % (2-12); NEUTROPHILS # (AUTO) 8.2 X10'3 (1.8-7.7); NEUTROPHILS % (AUTO) 81.3 % (42-75); PLATELET COUNT 103 X10'3 (140-440); RED BLOOD COUNT 3.76 X10'6 (4.20-5.60); RED CELL DISTRIBUTION WIDTH 16.4 % (11.5-14.5); WHITE BLOOD COUNT 10.1 X10'3 (4.5-11.0)
[2017-04-23 04:45] LABS: ALANINE AMINOTRANSFERASE 25 U/L (12-78); ALBUMIN 1.9 G/DL (3.4-5.0); ALBUMIN/GLOBULIN RATIO 0.6 (1.1-1.5); ALKALINE PHOSPHATASE 53 IU/L (46-116); ANION GAP 3 (8-16); ASPARTATE AMINO TRANSFERASE 26 U/L (10-37); BILIRUBIN,TOTAL 0.4 MG/DL (0.1-1.0); BLOOD UREA NITROGEN 73 MG/DL (7-18); BUN/CREATININE RATIO 57.5 (6.6-38.0); CALCIUM 7.8 MG/DL (8.5-10.1); CHLORIDE 101 MMOL/L (99-107); CREATININE 1.27 MG/DL (0.40-0.90); GLUCOSE 115 MG/DL (70-104); MAGNESIUM 2.2 MG/DL (1.5-2.4); POTASSIUM 3.5 MMOL/L (3.5-5.1); SODIUM 144 MMOL/L (135-145); TOTAL PROTEIN 5.2 G/DL (6.4-8.2); eGFR 41 ML/MIN
[2017-04-23 05:01] LABS: ABG BASE EXCESS 11.1 mmol/L (-2.0-3.0); ABG HCO3 35.3 mmol/L (22.0-26.0); ABG OXYGEN SATURATION 95.8 % (95-98); ABG PCO2 (T) 44.8 mmHg (32.0-45.0); ABG PH (T) 7.514 (7.350-7.450); ABG PO2 (T) 84.1 mmHg (83-108); ALLEN'S TEST Positive; FCOHb 0.1 % (0.5-1.5); FO2Hb 95.7 % (94-100); MINUTE VOLUME 7 L/min; PATIENT TEMPERATURE 36.7; PEEP 5 cm H2O; RESPIRATORY RATE 12 b/min; RESPIRATORY RATE (OBSERVED) 12 b/min; TIDAL VOLUME 500 mL; TOTAL HEMOGLOBIN 10.7 G/dl (12.0-16.0)
[2017-04-23] MEDS: docusate sodium 100mg/10ml UD cup PO SCH ×2 (07:29→20:36)
[2017-04-23] MEDS: lactobacillus rhamnosus 10,000 MMU CELLS/CAPSULE PO SCH ×2 (07:29→20:36)
[2017-04-23] MEDS: famotidine/PF 10 mg/ml inj IV SCH ×2 (07:29→20:36)
[2017-04-23] MEDS: magnesium hydroxide 30ml (MOM) UD suspension PO PRN (07:29)
[2017-04-23] MEDS: apixaban 5mg tablet PO SCH ×2 (07:29→20:36)
[2017-04-23] MEDS: cefepime 1GM/NS ADD-VANTAGE 100 ML IV SCH ×2 (07:29→20:36)
[2017-04-23] MEDS: flecainide 50mg tablet PO SCH ×2 (07:29→20:36)
[2017-04-23] MEDS: nystatin 15 GM powder TP SCH ×3 (07:30→20:37)
[2017-04-23] MEDS: furosemide 40mg/4ml inj IV SCH ×2 (08:00→20:43)
[2017-04-23] MEDS: carVEDilol 12.5mg tablet PO SCH ×2 (08:00→20:00)
[2017-04-23] MEDS: K and/or MAG REPLACEMENT MC SCH (08:00)
[2017-04-23] MEDS: dexmedetomidine inj. 400 MCG in normal saline 100ml IV soln 100 ML IV PRN ×2 (11:43→18:51)
[2017-04-23] MEDS: insulin glargine (Lantus) pen - multi-dose SQ SCH (20:43)
[2017-04-24] VITALS (24 sets, daily range): BP systolic 93–135; BP diastolic 50–77
[2017-04-24] MEDS: dexmedetomidine inj. 400 MCG in normal saline 100ml IV soln 100 ML IV PRN ×4 (00:04→20:50)
[2017-04-24] MEDS: mineral oil/petrolatum ophthal oint EACHEYE SCH ×4 (02:44→20:46)
[2017-04-24] MEDS: insulin regular, human vial - multi-dose SQ SCH ×4 (02:48→20:58)
[2017-04-24 03:10] LABS: BASOPHILS % (AUTO) 0.1 % (0-1); EOSINOPHILS # (AUTO) 0.3 X10'3 (0-0.9); EOSINOPHILS % (AUTO) 2.3 % (0-6); HEMATOCRIT 32.4 % (35.0-45.0); HEMOGLOBIN 10.5 g/dl (12.0-16.0); LYMPHOCYTES # (AUTO) 0.6 X10'3 (1.1-4.8); LYMPHOCYTES % (AUTO) 5.6 % (21-51); MEAN CORPUSCULAR HEMOGLOBIN 25.9 PG (27.0-31.0); MEAN CORPUSCULAR HGB CONC 32.6 % (33.0-36.5); MEAN CORPUSCULAR VOLUME 79.5 FL (78-98); MEAN PLATELET VOLUME 9.5 FL (7.4-10.4); MONOCYTES % (AUTO) 8.6 % (2-12); NEUTROPHILS # (AUTO) 9.5 X10'3 (1.8-7.7); NEUTROPHILS % (AUTO) 83.4 % (42-75); PLATELET COUNT 114 X10'3 (140-440); RED BLOOD COUNT 4.07 X10'6 (4.20-5.60); RED CELL DISTRIBUTION WIDTH 16.7 % (11.5-14.5); WHITE BLOOD COUNT 11.4 X10'3 (4.5-11.0)
[2017-04-24] MEDS: ipratropium/albuterol 3ml nebule NEB SCH ×4 (03:29→21:24)
[2017-04-24 03:33] LABS: ALANINE AMINOTRANSFERASE 26 U/L (12-78); ALBUMIN 1.9 G/DL (3.4-5.0); ALBUMIN/GLOBULIN RATIO 0.6 (1.1-1.5); ALKALINE PHOSPHATASE 60 IU/L (46-116); ANION GAP 4 (8-16); ASPARTATE AMINO TRANSFERASE 26 U/L (10-37); BILIRUBIN,TOTAL 0.6 MG/DL (0.1-1.0); BLOOD UREA NITROGEN 71 MG/DL (7-18); CALCIUM 8.1 MG/DL (8.5-10.1); CHLORIDE 100 MMOL/L (99-107); CREATININE 1.29 MG/DL (0.40-0.90); GLUCOSE 226 MG/DL (70-104); MAGNESIUM 2.3 MG/DL (1.5-2.4); POTASSIUM 3.5 MMOL/L (3.5-5.1); SODIUM 142 MMOL/L (135-145); TOTAL CARBON DIOXIDE 38.2 MMOL/L (24-32); TOTAL PROTEIN 5.3 G/DL (6.4-8.2); eGFR 40 ML/MIN
[2017-04-24 03:56] LABS: ABG HCO3 35.4 mmol/L (22.0-26.0); ABG OXYGEN SATURATION 98.2 % (95-98); ABG PH (T) 7.554 (7.350-7.450); ABG PO2 (T) 120.7 mmHg (83-108); ALLEN'S TEST Positive; FCOHb 0.4 % (0.5-1.5); FMetHb 0.3 % (0.3-1.12); FO2Hb 97.5 % (94-100); MINUTE VOLUME 8 L/min; PATIENT TEMPERATURE 36.9; PEEP 5 cm H2O; RESPIRATORY RATE 14 b/min; RESPIRATORY RATE (OBSERVED) 14 b/min; TIDAL VOLUME 500 mL; TOTAL HEMOGLOBIN 11.7 G/dl (12.0-16.0)
[2017-04-24] MEDS: mineral oil 133ml enema RC PRN (06:40)
[2017-04-24] MEDS: carVEDilol 12.5mg tablet PO SCH ×2 (08:00→20:46)
[2017-04-24] MEDS: apixaban 5mg tablet PO SCH ×2 (08:01→20:46)
[2017-04-24] MEDS: docusate sodium 100mg/10ml UD cup PO SCH ×2 (08:01→20:45)
[2017-04-24] MEDS: lactobacillus rhamnosus 10,000 MMU CELLS/CAPSULE PO SCH ×2 (08:01→20:45)
[2017-04-24] MEDS: cefepime 1GM/NS ADD-VANTAGE 100 ML IV SCH ×2 (08:02→20:44)
[2017-04-24] MEDS: flecainide 50mg tablet PO SCH ×2 (08:02→20:45)
[2017-04-24] MEDS: furosemide 40mg/4ml inj IV SCH ×2 (08:05→20:45)
[2017-04-24] MEDS: famotidine/PF 10 mg/ml inj IV SCH ×2 (08:05→20:00)
[2017-04-24] MEDS: nystatin 15 GM powder TP SCH ×3 (08:06→21:58)
[2017-04-24] MEDS: lactulose 20gm/30ml cup PO PRN ×3 (11:07→15:26)
[2017-04-24] MEDS: HYDROcodone/acetaminophen 5mg/325mg tablet PO PRN ×2 (15:26→23:18)
[2017-04-24] MEDS: insulin glargine (Lantus) pen - multi-dose SQ SCH (21:56)
[2017-04-25] VITALS (23 sets, daily range): BP systolic 90–118; BP diastolic 50–74
[2017-04-25] MEDS: mineral oil/petrolatum ophthal oint EACHEYE SCH ×4 (02:00→20:00)
[2017-04-25] MEDS: ipratropium/albuterol 3ml nebule NEB SCH ×4 (03:13→20:12)
[2017-04-25] MEDS: dexmedetomidine inj. 400 MCG in normal saline 100ml IV soln 100 ML IV PRN ×4 (04:21→22:47)
[2017-04-25] MEDS: insulin regular, human vial - multi-dose SQ SCH ×3 (04:23→20:23)
[2017-04-25 05:00] LABS: ABG BASE EXCESS 4.4 mmol/L (-2.0-3.0); ABG HCO3 28.9 mmol/L (22.0-26.0); ABG OXYGEN SATURATION 91.4 % (95-98); ABG PCO2 (T) 43.5 mmHg (32.0-45.0); ABG PH (T) 7.442 (7.350-7.450); ABG PO2 (T) 66.2 mmHg (83-108); ALLEN'S TEST Positive; FCOHb 0.4 % (0.5-1.5); FMetHb 0.3 % (0.3-1.12); FO2Hb 90.8 % (94-100); PATIENT TEMPERATURE 37.2; PEEP 5 cm H2O; RESPIRATORY RATE 12 b/min; TIDAL VOLUME 500 mL; TOTAL HEMOGLOBIN 11.1 G/dl (12.0-16.0)
[2017-04-25 05:33] LABS: BASOPHILS # (AUTO) 0.1 X10'3 (0-0.2); BASOPHILS % (AUTO) 0.5 % (0-1); EOSINOPHILS # (AUTO) 0.4 X10'3 (0-0.9); EOSINOPHILS % (AUTO) 3.3 % (0-6); HEMATOCRIT 30.2 % (35.0-45.0); LYMPHOCYTES # (AUTO) 0.7 X10'3 (1.1-4.8); LYMPHOCYTES % (AUTO) 6.1 % (21-51); MEAN CORPUSCULAR HEMOGLOBIN 26.3 PG (27.0-31.0); MEAN CORPUSCULAR HGB CONC 33.2 % (33.0-36.5); MEAN CORPUSCULAR VOLUME 79.1 FL (78-98); MONOCYTES % (AUTO) 9.3 % (2-12); NEUTROPHILS # (AUTO) 9.1 X10'3 (1.8-7.7); NEUTROPHILS % (AUTO) 80.8 % (42-75); PLATELET COUNT 127 X10'3 (140-440); RED BLOOD COUNT 3.82 X10'6 (4.20-5.60); RED CELL DISTRIBUTION WIDTH 16.4 % (11.5-14.5); WHITE BLOOD COUNT 11.3 X10'3 (4.5-11.0)
[2017-04-25 05:46] LABS: ALBUMIN 1.9 G/DL (3.4-5.0); ANION GAP 7 (8-16); BLOOD UREA NITROGEN 77 MG/DL (7-18); BUN/CREATININE RATIO 73.3 (6.6-38.0); CALCIUM 7.9 MG/DL (8.5-10.1); CHLORIDE 103 MMOL/L (99-107); CREATININE 1.05 MG/DL (0.40-0.90); GLUCOSE 106 MG/DL (70-104); MAGNESIUM 2.2 MG/DL (1.5-2.4); PHOSPHORUS 1.7 MG/DL (2.3-4.5); POTASSIUM 3.3 MMOL/L (3.5-5.1); SODIUM 147 MMOL/L (135-145); TOTAL CARBON DIOXIDE 37.4 MMOL/L (24-32); eGFR 51 ML/MIN
[2017-04-25] MEDS: nystatin 15 GM powder TP SCH ×3 (08:24→20:13)
[2017-04-25] MEDS: furosemide 40mg/4ml inj IV SCH ×2 (08:24→16:33)
[2017-04-25] MEDS: docusate sodium 100mg/10ml UD cup PO SCH ×2 (08:24→20:13)
[2017-04-25] MEDS: HYDROcodone/acetaminophen 5mg/325mg tablet PO PRN (08:25)
[2017-04-25] MEDS: apixaban 5mg tablet PO SCH ×2 (08:25→20:14)
[2017-04-25] MEDS: carVEDilol 12.5mg tablet PO SCH ×2 (08:25→20:15)
[2017-04-25] MEDS: lactobacillus rhamnosus 10,000 MMU CELLS/CAPSULE PO SCH ×2 (08:25→20:15)
[2017-04-25] MEDS: flecainide 50mg tablet PO SCH ×2 (08:26→20:14)
[2017-04-25] MEDS: cefepime 1GM/NS ADD-VANTAGE 100 ML IV SCH ×2 (08:26→20:14)
[2017-04-25] MEDS: potassium Cl 40MEQ/250ML bag 250 ML IV PRN (09:11)
[2017-04-25] MEDS: famotidine/PF 10 mg/ml inj IV SCH ×2 (09:51→20:14)
[2017-04-25] MEDS ORDERED: furosemide 40mg/4ml inj IV ONE (11:50)
[2017-04-25] MEDS: insulin glargine (Lantus) pen - multi-dose SQ SCH (20:25)
[2017-04-26] VITALS (22 sets, daily range): BP systolic 93–119; BP diastolic 47–75
[2017-04-26] MEDS: furosemide 40mg/4ml inj IV SCH ×4 (00:14→23:23)
[2017-04-26] MEDS: ipratropium/albuterol 3ml nebule NEB SCH ×4 (01:57→20:30)
[2017-04-26] MEDS: mineral oil/petrolatum ophthal oint EACHEYE SCH ×4 (02:00→21:08)
[2017-04-26] MEDS: insulin regular, human vial - multi-dose SQ SCH ×3 (02:42→21:24)
[2017-04-26 02:48] LABS: BASOPHILS % (AUTO) 0.3 % (0-1); EOSINOPHILS # (AUTO) 0.4 X10'3 (0-0.9); HEMATOCRIT 30.6 % (35.0-45.0); LYMPHOCYTES # (AUTO) 0.7 X10'3 (1.1-4.8); LYMPHOCYTES % (AUTO) 6.1 % (21-51); MEAN CORPUSCULAR HGB CONC 32.6 % (33.0-36.5); MEAN CORPUSCULAR VOLUME 79.9 FL (78-98); MONOCYTES # (AUTO) 1.2 X10'3 (0-0.9); MONOCYTES % (AUTO) 9.8 % (2-12); NEUTROPHILS # (AUTO) 9.7 X10'3 (1.8-7.7); NEUTROPHILS % (AUTO) 80.8 % (42-75); PLATELET COUNT 133 X10'3 (140-440); RED BLOOD COUNT 3.83 X10'6 (4.20-5.60); RED CELL DISTRIBUTION WIDTH 16.9 % (11.5-14.5)
[2017-04-26 03:05] LABS: ALBUMIN 1.8 G/DL (3.4-5.0); ANION GAP 4 (8-16); BLOOD UREA NITROGEN 80 MG/DL (7-18); BUN/CREATININE RATIO 72.7 (6.6-38.0); CALCIUM 8.1 MG/DL (8.5-10.1); CHLORIDE 104 MMOL/L (99-107); GLUCOSE 95 MG/DL (70-104); MAGNESIUM 1.9 MG/DL (1.5-2.4); PHOSPHORUS 1.8 MG/DL (2.3-4.5); POTASSIUM 3.4 MMOL/L (3.5-5.1); SODIUM 145 MMOL/L (135-145); TOTAL CARBON DIOXIDE 37.3 MMOL/L (24-32); eGFR 48 ML/MIN
[2017-04-26 04:06] LABS: ABG BASE EXCESS 7.3 mmol/L (-2.0-3.0); ABG HCO3 31.7 mmol/L (22.0-26.0); ABG OXYGEN SATURATION 91.4 % (95-98); ABG PCO2 (T) 45.3 mmHg (32.0-45.0); ABG PH (T) 7.465 (7.350-7.450); ALLEN'S TEST Positive; FCOHb 0.6 % (0.5-1.5); FMetHb 0.3 % (0.3-1.12); FO2Hb 90.6 % (94-100); MINUTE VOLUME 8 L/min; PATIENT TEMPERATURE 37.5; PEEP 5 cm H2O; RESPIRATORY RATE 12 b/min; RESPIRATORY RATE (OBSERVED) 20 b/min; TIDAL VOLUME 500 mL; TOTAL HEMOGLOBIN 11.6 G/dl (12.0-16.0)
[2017-04-26] MEDS: dexmedetomidine inj. 400 MCG in normal saline 100ml IV soln 100 ML IV PRN ×3 (04:35→18:55)
[2017-04-26] MEDS ORDERED: potassium Cl 40MEQ/250ML bag 250 ML IV ONE (04:53)
[2017-04-26] MEDS: potassium Cl 40MEQ/250ML bag 250 ML IV PRN (05:13)
[2017-04-26] MEDS: apixaban 5mg tablet PO SCH ×2 (06:57→21:09)
[2017-04-26] MEDS: famotidine/PF 10 mg/ml inj IV SCH ×2 (06:57→21:08)
[2017-04-26] MEDS: magnesium hydroxide 30ml (MOM) UD suspension PO PRN (06:57)
[2017-04-26] MEDS: docusate sodium 100mg/10ml UD cup PO SCH ×2 (06:57→21:08)
[2017-04-26] MEDS: lactobacillus rhamnosus 10,000 MMU CELLS/CAPSULE PO SCH ×2 (06:57→21:07)
[2017-04-26] MEDS: flecainide 50mg tablet PO SCH ×2 (06:58→21:07)
[2017-04-26] MEDS: cefepime 1GM/NS ADD-VANTAGE 100 ML IV SCH (06:58)
[2017-04-26] MEDS: nystatin 15 GM powder TP SCH ×3 (08:00→21:09)
[2017-04-26] MEDS: carVEDilol 12.5mg tablet PO SCH ×2 (08:00→21:08)
[2017-04-26] MEDS: mineral oil 133ml enema RC PRN (08:17)
[2017-04-26] MEDS: methylPREDNISolone sod succ 125mg/2ml vial IV SCH ×3 (10:01→21:08)
[2017-04-26] MEDS ORDERED: sodium phosphate inj. 15 MMOL in dextrose 5%-water 150 ML IV PRN (10:28)
[2017-04-26] MEDS ORDERED: sodium phosphate inj. 30 MMOL in dextrose 5%-water 250 ML IV PRN (10:28)
[2017-04-26] MEDS: Neutra Phos packet PO PRN ×2 (12:34→16:46)
[2017-04-26] MEDS: insulin glargine (Lantus) pen - multi-dose SQ SCH (21:19)
[2017-04-26] MEDS: diphenhydrAMINE 50 mg/ml inj IV PRN (22:13)
[2017-04-27] VITALS (23 sets, daily range): BP systolic 105–138; BP diastolic 58–78
[2017-04-27] MEDS: dexmedetomidine inj. 400 MCG in normal saline 100ml IV soln 100 ML IV PRN (00:49)
[2017-04-27] MEDS: methylPREDNISolone sod succ 125mg/2ml vial IV SCH ×4 (01:56→20:04)
[2017-04-27] MEDS: insulin regular, human vial - multi-dose SQ SCH ×3 (01:59→20:59)
[2017-04-27] MEDS: ipratropium/albuterol 3ml nebule NEB SCH ×4 (02:06→20:43)
[2017-04-27] MEDS: mineral oil/petrolatum ophthal oint EACHEYE SCH (02:08)
[2017-04-27] MEDS: HYDROcodone/acetaminophen 5mg/325mg tablet PO PRN ×3 (02:08→20:05)
[2017-04-27 03:31] LABS: BASOPHILS % (AUTO) 0 % (0-1); EOSINOPHILS # (AUTO) 0.1 X10'3 (0-0.9); EOSINOPHILS % (AUTO) 1.1 % (0-6); HEMOGLOBIN 10.3 g/dl (12.0-16.0); LYMPHOCYTES # (AUTO) 0.3 X10'3 (1.1-4.8); LYMPHOCYTES % (AUTO) 3.1 % (21-51); MEAN CORPUSCULAR HEMOGLOBIN 25.5 PG (27.0-31.0); MEAN CORPUSCULAR HGB CONC 32.2 % (33.0-36.5); MEAN CORPUSCULAR VOLUME 79.4 FL (78-98); MEAN PLATELET VOLUME 9.2 FL (7.4-10.4); MONOCYTES # (AUTO) 0.3 X10'3 (0-0.9); MONOCYTES % (AUTO) 2.8 % (2-12); NEUTROPHILS # (AUTO) 9.2 X10'3 (1.8-7.7); PLATELET COUNT 164 X10'3 (140-440); RED BLOOD COUNT 4.03 X10'6 (4.20-5.60); RED CELL DISTRIBUTION WIDTH 16.3 % (11.5-14.5); WHITE BLOOD COUNT 9.9 X10'3 (4.5-11.0)
[2017-04-27 03:46] LABS: ANION GAP 7 (8-16); BLOOD UREA NITROGEN 94 MG/DL (7-18); BUN/CREATININE RATIO 76.4 (6.6-38.0); CALCIUM 8.1 MG/DL (8.5-10.1); CHLORIDE 101 MMOL/L (99-107); CREATININE 1.23 MG/DL (0.40-0.90); GLUCOSE 335 MG/DL (70-104); MAGNESIUM 2.2 MG/DL (1.5-2.4); PHOSPHORUS 3.1 MG/DL (2.3-4.5); POTASSIUM 3.8 MMOL/L (3.5-5.1); SODIUM 141 MMOL/L (135-145); TOTAL CARBON DIOXIDE 32.9 MMOL/L (24-32); eGFR 42 ML/MIN
[2017-04-27 04:15] LABS: ABG BASE EXCESS 8.3 mmol/L (-2.0-3.0); ABG HCO3 31.9 mmol/L (22.0-26.0); ABG PCO2 (T) 40.3 mmHg (32.0-45.0); ABG PH (T) 7.516 (7.350-7.450); ABG PO2 (T) 64.5 mmHg (83-108); ALLEN'S TEST Positive; FCOHb 0.6 % (0.5-1.5); FMetHb 0.3 % (0.3-1.12); FO2Hb 91.2 % (94-100); MINUTE VOLUME 6 L/min; PATIENT TEMPERATURE 37.1; PEEP 5 cm H2O; RESPIRATORY RATE 12 b/min; RESPIRATORY RATE (OBSERVED) 18 b/min; TIDAL VOLUME 500 mL; TOTAL HEMOGLOBIN 11.3 G/dl (12.0-16.0)
[2017-04-27] MEDS: magnesium hydroxide 30ml (MOM) UD suspension PO PRN (07:57)
[2017-04-27] MEDS: docusate sodium 100mg/10ml UD cup PO SCH ×2 (07:57→20:08)
[2017-04-27] MEDS: lactobacillus rhamnosus 10,000 MMU CELLS/CAPSULE PO SCH ×2 (07:57→20:05)
[2017-04-27] MEDS: carVEDilol 12.5mg tablet PO SCH ×2 (07:58→20:05)
[2017-04-27] MEDS: famotidine/PF 10 mg/ml inj IV SCH ×2 (07:58→20:04)
[2017-04-27] MEDS: flecainide 50mg tablet PO SCH ×2 (07:58→20:04)
[2017-04-27] MEDS: furosemide 40mg/4ml inj IV SCH ×3 (07:58→23:28)
[2017-04-27] MEDS: apixaban 5mg tablet PO SCH ×2 (07:59→20:04)
[2017-04-27] MEDS: nystatin 15 GM powder TP SCH ×3 (08:00→21:00)
[2017-04-27] MEDS: temazepam 15mg capsule PO PRN (20:08)
[2017-04-27] MEDS: insulin glargine (Lantus) pen - multi-dose SQ SCH (20:58)
[2017-04-27] MEDS: diphenhydrAMINE 50 mg/ml inj IV PRN (23:28)
[2017-04-28] VITALS (19 sets, daily range): BP systolic 94–179; BP diastolic 45–77
[2017-04-28] MEDS: methylPREDNISolone sod succ 125mg/2ml vial IV SCH ×3 (01:20→15:16)
[2017-04-28] MEDS: ipratropium/albuterol 3ml nebule NEB SCH ×3 (02:22→14:25)
[2017-04-28 03:17] LABS: BASOPHILS % (AUTO) 0.1 % (0-1); EOSINOPHILS % (AUTO) 0 % (0-6); HEMATOCRIT 30.6 % (35.0-45.0); LYMPHOCYTES # (AUTO) 0.4 X10'3 (1.1-4.8); LYMPHOCYTES % (AUTO) 3.3 % (21-51); MEAN CORPUSCULAR HEMOGLOBIN 26.2 PG (27.0-31.0); MEAN CORPUSCULAR HGB CONC 32.8 % (33.0-36.5); MEAN CORPUSCULAR VOLUME 79.9 FL (78-98); MEAN PLATELET VOLUME 9.3 FL (7.4-10.4); MONOCYTES # (AUTO) 0.3 X10'3 (0-0.9); MONOCYTES % (AUTO) 2.8 % (2-12); NEUTROPHILS # (AUTO) 11.7 X10'3 (1.8-7.7); NEUTROPHILS % (AUTO) 93.8 % (42-75); PLATELET COUNT 210 X10'3 (140-440); RED BLOOD COUNT 3.83 X10'6 (4.20-5.60); RED CELL DISTRIBUTION WIDTH 16.6 % (11.5-14.5); WHITE BLOOD COUNT 12.4 X10'3 (4.5-11.0)
[2017-04-28 03:22] LABS: ALBUMIN 2.1 G/DL (3.4-5.0); ANION GAP 8 (8-16); BLOOD UREA NITROGEN 94 MG/DL (7-18); BUN/CREATININE RATIO 85.5 (6.6-38.0); CALCIUM 8.1 MG/DL (8.5-10.1); CHLORIDE 103 MMOL/L (99-107); GLUCOSE 236 MG/DL (70-104); MAGNESIUM 2.5 MG/DL (1.5-2.4); PHOSPHORUS 3.3 MG/DL (2.3-4.5); POTASSIUM 3.5 MMOL/L (3.5-5.1); SODIUM 146 MMOL/L (135-145); TOTAL CARBON DIOXIDE 35.2 MMOL/L (24-32); eGFR 48 ML/MIN
[2017-04-28] MEDS: flecainide 50mg tablet PO SCH (08:00)
[2017-04-28] MEDS: lactobacillus rhamnosus 10,000 MMU CELLS/CAPSULE PO SCH (08:00)
[2017-04-28] MEDS: docusate sodium 100mg/10ml UD cup PO SCH (08:00)
[2017-04-28] MEDS: nystatin 15 GM powder TP SCH ×2 (09:18→15:13)
[2017-04-28] MEDS: furosemide 40mg/4ml inj IV SCH ×2 (09:18→16:04)
[2017-04-28] MEDS: apixaban 5mg tablet PO SCH (09:18)
[2017-04-28] MEDS: famotidine/PF 10 mg/ml inj IV SCH (09:19)
[2017-04-28] MEDS: carVEDilol 12.5mg tablet PO SCH (09:19)
[2017-04-28] MEDS: insulin regular, human vial - multi-dose SQ SCH ×2 (09:22→15:14)
[2017-04-28] MEDS ORDERED: Protein Shake (high protein) 240ml (8oz) cup PO SCH (13:00)
== END 2017-04-28 19:48 | DRG 870 ==
LOC: ER 11:48 → ED HOLD 16:13 → PCU 3S 19:20 → ICU 2S 04-19 07:23
PROVIDERS: ADMIT Family Medicine; ATTEND Internal Medicine Critical Care Medicine
PROC: 5A09457 Assistance with Respiratory Ventilation, 24-96 Consecutive Hours, Continuous Positive Airway Pressure (ICD-10-PCS; 2017-04-09)
PROC: 02HV33Z Insertion of Infusion Device into Superior Vena Cava, Percutaneous Approach (ICD-10-PCS; 2017-04-10)
PROC: 5A1955Z Respiratory Ventilation, Greater than 96 Consecutive Hours (ICD-10-PCS; principal; 2017-04-19)
PROC: 0BH17EZ Insertion of Endotracheal Airway into Trachea, Via Natural or Artificial Opening (ICD-10-PCS; 2017-04-19)
PROC: 02HV33Z Insertion of Infusion Device into Superior Vena Cava, Percutaneous Approach (ICD-10-PCS; 2017-04-19)
PROC: B548ZZA Ultrasonography of Superior Vena Cava, Guidance (ICD-10-PCS; 2017-04-19)
PROC: 0W9B30Z Drainage of Left Pleural Cavity with Drainage Device, Percutaneous Approach (ICD-10-PCS; 2017-04-19)
DX: A41.9 Sepsis, unspecified organism (principal); J96.01 Acute respiratory failure with hypoxia; R65.21 Severe sepsis with septic shock; G93.40 Encephalopathy, unspecified; Z99.11 Dependence on respirator [ventilator] status; J18.1 Lobar pneumonia, unspecified organism; J91.8 Pleural effusion in other conditions classified elsewhere; I50.33 Acute on chronic diastolic (congestive) heart failure; I13.0 Hypertensive heart and chronic kidney disease with heart failure and stage 1 through stage 4 chronic kidney disease, or unspecified chronic kidney disease; N17.9 Acute kidney failure, unspecified; J44.1 Chronic obstructive pulmonary disease with (acute) exacerbation; Z68.42 Body mass index [BMI] 45.0-49.9, adult; N39.0 Urinary tract infection, site not specified; E87.0 Hyperosmolality and hypernatremia; J44.0 Chronic obstructive pulmonary disease with (acute) lower respiratory infection; J98.11 Atelectasis; I27.81 Cor pulmonale (chronic); F41.9 Anxiety disorder, unspecified; J40 Bronchitis, not specified as acute or chronic; G89.29 Other chronic pain; M54.9 Dorsalgia, unspecified; I27.29 Other secondary pulmonary hypertension; E11.22 Type 2 diabetes mellitus with diabetic chronic kidney disease; E66.01 Morbid (severe) obesity due to excess calories; E87.5 Hyperkalemia; B96.1 Klebsiella pneumoniae [K. pneumoniae] as the cause of diseases classified elsewhere; E11.65 Type 2 diabetes mellitus with hyperglycemia; I48.2 Chronic atrial fibrillation; N18.3 Chronic kidney disease, stage 3 (moderate); Z74.01 Bed confinement status; Z90.710 Acquired absence of both cervix and uterus; Z90.49 Acquired absence of other specified parts of digestive tract; Z88.0 Allergy status to penicillin; Z88.8 Allergy status to other drugs, medicaments and biological substances; Z91.040 Latex allergy status; Z91.011 Allergy to milk products; Z79.899 Other long term (current) drug therapy; Z79.01 Long term (current) use of anticoagulants; Z79.4 Long term (current) use of insulin; Z85.42 Personal history of malignant neoplasm of other parts of uterus; Z87.891 Personal history of nicotine dependence; Z82.49 Family history of ischemic heart disease and other diseases of the circulatory system
CPT/HCPCS: 32557; 36415; 36569; 36600; 70450; 71045; 76937; 80048; 80053; 81001; 82803; 82948; 83036; 83605; 83735; 83880; 84100; 84132; 84134; 84145; 84439; 84443; 84484; 85018; 85025; 85610; 85730; 87040; 87070; 87077; 87088; 87186; 87502; 87503; 92616; 93005; 93306; 93880; 94002; 94003; 94640; 94660; 94760; 96365; 96366; 96367; 96375; 97110; 97162; 97530; 99291; A4333; A4353; A6212; A6213; A6257; A6258; A6449; A7015; A9270; C1751; C1758; J0171; J0456; J0692; J0696; J1200; J1815; J1940; J1956; J2001; J2020; J2250; J2270; J2405; J2930; J3370; J3480; J3490; J7030; J7060; P9047